=== PATIENT | female | born 1960 | race Caucasian/White ===

== ENCOUNTER 2020-10-07 12:30 | Inpatient (IN) | payer BC ==
[2020-10-07] MEDS ORDERED: ONDANSETRON 4 MG/2 ML VIAL IVP STA (14:15)
[2020-10-07] MEDS ORDERED: MORPHINE SULFATE 4 MG/ML SYRINGE IV STA (14:15)
[2020-10-07] MEDS ORDERED: SODIUM CHLORIDE 0.9% 1,000 ML IV STA (14:15)
--- NOTE | 2020-10-07 14:32 | ED ---
Abdominal Pain HPI - General Chief Complaint: Abdominal Pain Stated Complaint: ABD pain Time Seen by Provider: 10/07/20 13:58 Source: patient, EMS Limitations: no limitations - History of Present Illness Initial Comments: Patient is a 60-year-old female presenting to the emergency department via EMS with complaints of worsening abdominal pain and constipation and nausea. Bianca nt states she's been dealing with constipation at home over the past few weeks, she's been having very small bowel movements. She states over the past 4-5 days her pain has been increasing, she gets very sharp intense, 10/10 pain in her abdomen and then seems to go down a little bit. She states she has been trying "natural approaches to her constipation", she has not tried stool softeners or laxatives. She states she does drink a lot of water but has been nauseous over the past few days has not been able drink very much. Patient did receive 4 mg of Zofran and the EMS prior to arrival. Patient admits to prior history of laparoscopic abdominal surgery, no other surgeries. She denies any fevers or chills, no chest pain or shortness of breath. She states this pain is not a specific area, rather scattered around. She denies any hematuria or dysuria. She has no further complaints at this time. Upon arrival to the ER, she is hypertensive at 167/104, rest of vitals are normal. - Related Data Home Medications Medication Instructions Recorded Confirmed Biotin 5 mg PO DAILY 10/07/20 10/07/20 Cetirizine HCl [Zyrtec] 10 mg PO DAILY 10/07/20 10/07/20 Ibuprofen [Motrin Ib] 400 mg PO Q8H PRN 10/07/20 10/07/20 Allergies Allergy/AdvReac Type Severity Reaction Status Date / Time codeine AdvReac Vomiting Verified 10/07/20 14:51 hydrocodone [From Vicodin] AdvReac Vomiting Verified 10/07/20 14:51 Review of Systems ROS Statement: Those systems with pertinent positive or pertinent negative responses have been documented in the HPI. ROS Other: All systems not noted in ROS Statement are negative. Past Medical History Past Medical History: No Reported History History of Any Multi-Drug Resistant Organisms: None Reported Past Surgical History: No Surgical Hx Reported Past Psychological History: Anxiety Smoking Status: Current every day smoker Past Alcohol Use History: Occasional Past Drug Use History: Marijuana General Exam - General Exam Comments Initial Comments: GENERAL: Patient is well-developed and well-nourished. Patient is nontoxic and in moderate distress. HEAD: Atraumatic, normocephalic. EYES: Pupils equal round and reactive to light, extraocular movements intact, sclera anicteric, conjunctiva are normal. Eyelids were unremarkable. ENT: TMs normal, nares patent, oropharynx clear without exudates. Moist mucous membranes. NECK: Normal range of motion, supple without lymphadenopathy or JVD. LUNGS: Unlabored respirations. Breath sounds clear to auscultation bilaterally and equal. No wheezes rales or rhonchi. HEART: Regular rate and rhythm without murmurs, rubs or gallops. ABDOMEN: Soft, tender to palpation of the entire abdomen, no specific area, hypoactive bowel sounds, positive guarding. No masses appreciated. : Deferred MUSCULOSKELETAL: Normal extremities with adequate strength and normal range of motion, no pitting or edema. No clubbing or cyanosis. NEUROLOGICAL: Patient is alert and oriented x 3. Motor and sensory are also intact. Cranial nerves II through XII grossly intact. Symmetrical smile. Normal speech, normal gait. PSYCH: Normal mood, normal affect. SKIN: Warm, Dry, normal turgor, no rashes or lesions noted. Limitations: no limitations Course Vital Signs 10/07/20 10/07/20 12:54 16:15 Temperature 98.0 F 98.1 F Pulse Rate 83 86 Respiratory 18 18 Rate Blood Pressure 167/104 137/80 O2 Sat by Pulse 97 98 Oximetry Medical Decision Making - Medical Decision Making Patient is a 60-year-old female here for abdominal pain worsening over the past week. She arrived via EMS. She received 4 mg Zofran and EMS prior to arrival. She has been constipated, she has scattered severe abdominal pain, no specific area. She is hypertensive upon arrival, rest of vitals are normal. Labs show a white count of 19.9 with shift. lactic acid is 1.9, lipase is normal urine susy ws no evidence of infection. CT of the abdomen and pelvis shows a hypodense lesions adjacent to sigmoid colon felt to be related to a left ovarian abscess, acute diverticulitis with small adjacent abscesses should be considered within the differential. Patient will be admitted to the hospital, started on antibiotics with consult to surgery. I did order a pelvic ultrasound, this is pending. Patient was accepted by Dr. pandya. Case discussed with Dr. Blackwell. - Lab Data Result diagrams: 10/07/20 14:40 10/07/20 15:00 Lab Results 10/07/20 10/07/20 10/07/20 Range/Units 14:40 14:40 14:40 WBC 19.9 H (3.8-10.6) k/uL RBC 5.12 (3.80-5.40) m/uL Hgb 17.3 H (11.4-16.0) gm/dL Hct 49.8 H (34.0-46.0) % MCV 97.2 (80.0-100.0) fL MCH 33.8 (25.0-35.0) pg MCHC 34.8 (31.0-37.0) g/dL RDW 12.7 (11.5-15.5) % Plt Count 269 (150-450) k/uL MPV 9.2 Neutrophils % 92 % Lymphocytes % 2 % Monocytes % 4 % Eosinophils % 1 % Basophils % 1 % Neutrophils # 18.4 H (1.3-7.7) k/uL Lymphocytes # 0.4 L (1.0-4.8) k/uL Monocytes # 0.7 (0-1.0) k/uL Eosinophils # 0.3 (0-0.7) k/uL Basophils # 0.2 (0-0.2) k/uL PT 10.0 (9.0-12.0) sec INR 0.9 (<1.2) APTT 28.8 (22.0-30.0) sec Sodium (137-145) mmol/L Potassium (3.5-5.1) mmol/L Chloride (98-107) mmol/L Carbon Dioxide (22-30) mmol/L Anion Gap mmol/L BUN (7-17) mg/dL Creatinine (0.52-1.04) mg/dL Est GFR (CKD-EPI)AfAm (>60 ml/min/1.73 sqM) Est GFR (CKD-EPI)NonAf (>60 ml/min/1.73 sqM) Glucose (74-99) mg/dL Plasma Lactic Acid Rudy (0.7-2.0) mmol/L Calcium (8.4-10.2) mg/dL Total Bilirubin (0.2-1.3) mg/dL AST (14-36) U/L ALT (4-34) U/L Alkaline Phosphatase (38-126) U/L Total Protein (6.3-8.2) g/dL Albumin (3.5-5.0) g/dL Amylase (30-110) U/L Lipase (23-300) U/L Urine Color Yellow Urine Appearance Clear (Clear) Urine pH 5.5 (5.0-8.0) Ur Specific [place] >1.050 H (1.001-1.035) Urine Protein Negative (Negative) Urine Glucose (UA) Negative (Negative) Urine Ketones 1+ H (Negative) Urine Blood Negative (Negative) Urine Nitrite Negative (Negative) Urine Bilirubin Negative (Negative) Urine Urobilinogen <2.0 (<2.0) mg/dL Ur Leukocyte Esterase Negative (Negative) 10/07/20 10/07/20 Range/Units 14:40 15:00 WBC (3.8-10.6) k/uL RBC (3.80-5.40) m/uL Hgb (11.4-16.0) gm/dL Hct (34.0-46.0) % MCV (80.0-100.0) fL MCH (25.0-35.0) pg MCHC (31.0-37.0) g/dL RDW (11.5-15.5) % Plt Count (150-450) k/uL MPV Neutrophils % % Lymphocytes % % Monocytes % % Eosinophils % % Basophils % % Neutrophils # (1.3-7.7) k/uL Lymphocytes # (1.0-4.8) k/uL Monocytes # (0-1.0) k/uL Eosinophils # (0-0.7) k/uL Basophils # (0-0.2) k/uL PT (9.0-12.0) sec INR (<1.2) APTT (22.0-30.0) sec Sodium 134 L (137-145) mmol/L Potassium 5.9 H (3.5-5.1) mmol/L Chloride 99 (98-107) mmol/L Carbon Dioxide 27 (22-30) mmol/L Anion Gap 8 mmol/L BUN 10 (7-17) mg/dL Creatinine 0.56 (0.52-1.04) mg/dL Est GFR (CKD-EPI)AfAm >90 (>60 ml/min/1.73 sqM) Est GFR (CKD-EPI)NonAf >90 (>60 ml/min/1.73 sqM) Glucose 128 H (74-99) mg/dL Plasma Lactic Acid Rudy 1.9 (0.7-2.0) mmol/L Calcium 9.3 (8.4-10.2) mg/dL Total Bilirubin 1.3 (0.2-1.3) mg/dL AST 26 (14-36) U/L ALT 8 (4-34) U/L Alkaline Phosphatase 89 (38-126) U/L Total Protein 7.5 (6.3-8.2) g/dL Albumin 4.3 (3.5-5.0) g/dL Amylase 52 (30-110) U/L Lipase 12 L (23-300) U/L Urine Color Urine Appearance (Clear) Urine pH (5.0-8.0) Ur Specific [place] (1.001-1.035) Urine Protein (Negative) Urine Glucose (UA) (Negative) Urine Ketones (Negative) Urine Blood (Negative) Urine Nitrite (Negative) Urine Bilirubin (Negative) Urine Urobilinogen (<2.0) mg/dL Ur Leukocyte Esterase (Negative) Disposition Clinical Impression: Diverticulitis of intestine with abscess, Leukocytosis, Nausea and vomiting Disposition: ADMITTED IP TO THIS [facility] Condition: Stable Decision Date: 10/07/20 Decision Time: 16:02
--- NOTE | 2020-10-07 14:40 | XR ---
EXAMINATION TYPE: XR abdomen acute w cxr DATE OF EXAM: 10/07/2020 COMPARISON: NONE HISTORY: Abdominal pain TECHNIQUE: Supine, upright, and left side down lateral decubitus views of the abdomen are obtained. FINDINGS: Postsurgical change overlying the cervical spine. Arthropathy of the shoulders. No pneumoth orax. Heart size is normal no overt failure or pleural effusion. Atherosclerotic change aorta. Bowel gas pattern nonspecific with no obstruction. Degenerative change lower lumbar spine. No suspici ous calcifications abdomen. Punctate calcification left hemipelvis nonspecific and too small to lucas cterize. IMPRESSION: 1. Nonspecific abdomen with no evidence of obstruction. 2. No acute intrathoracic process.
[2020-10-07 14:52] LABS: Basophils # (A) 0.2 k/uL (0-0.2); Basophils % (A) 1 %; Eosinophils # (A) 0.3 k/uL (0-0.7); Eosinophils % (A) 1 %; HCT 49.8 % (34.0-46.0); HGB 17.3 gm/dL (11.4-16.0); Lymphocytes # (A) 0.4 k/uL (1.0-4.8); Lymphocytes % (A) 2 %; MCH 33.8 pg (25.0-35.0); MCHC 34.8 g/dL (31.0-37.0); MCV 97.2 fL (80.0-100.0); Mean Platelet Volume 9.2; Monocytes # (A) 0.7 k/uL (0-1.0); Monocytes % (A) 4 %; Neutrophils # (A) 18.4 k/uL (1.3-7.7); Neutrophils % (A) 92 %; Platelet Count 269 k/uL (150-450); RBC 5.12 m/uL (3.80-5.40); RDW 12.7 % (11.5-15.5); WBC 19.9 k/uL (3.8-10.6)
[2020-10-07 15:31] LABS: INR 0.9 (<1.2); Partial Thromboplastin Time 28.8 sec (22.0-30.0)
--- NOTE | 2020-10-07 15:38 | CT ---
EXAMINATION TYPE: CT abdomen pelvis w con DATE OF EXAM: 10/07/2020 COMPARISON: None INDICATION: generalized abdominal pain, nausea, vomiting, constipation DLP: 790.3 mGycm, Automated exposure control for dose reduction was used. CONTRAST: 100 mL of Isovue 300. Study performed without Oral Contrast TECHNIQUE: Axial images were obtained from above the diaphragm to the pubic rami in the axial plane a t 5 mm thick sections. Reconstructed images are reviewed on the computer in the coronal plane. FINDINGS: Limited CT sections are obtained the lung bases. The lung bases are clear. There is a small hiatal hernia present. CT ABDOMEN: Liver: Normal Spleen: Normal Pancreas: Normal Adrenal glands: The adrenal glands are normal. Gallbladder: Normal Kidneys: No masses are evident. No hydronephrosis is present. No cysts are present. Delayed images were obtained through the kidneys, which remain unremarkable. Aorta: Vascular calcification is within the aorta. Inferior vena cava: Normal. CT PELVIS: Diverticuli are present to the sigmoid colon. Adjacent to the superior posterior sigmoid colon is a h ypodense collection measuring 2.6 cm. Abscess should be considered. There are are additional complex hypodense areas 1.9 cm transverse which is separate from the colon could be an additional adjacent ab scess. Significant inflammatory changes not identified. In the coronal reconstructed images this appe ars to communicate with the broad ligament suggesting tubo-ovarian abscess may be more likely than di verticulitis. The study is without oral contrast causing limitation on the bowel evaluation. Appendix: Not visualized. No dilated tubular structures are inflammatory changes evident. Urinary bladder: Normal. Genitourinary structures: Uterus appears normal. Ovaries are not clearly identified. The hypodense st ructures adjacent to the sigmoid colon and superior to the uterine fundus potentially could be tubo-o varian abscess. This appears to communicate with the broad ligament on the coronal reconstructed imag es. Osseous structures: No suspicious lytic or sclerotic lesions. IMPRESSIONS: 1. Hypodense lesions adjacent sigmoid colon felt to be related to left tubo-ovarian abscess. Acute d iverticulitis with small adjacent abscesses should be considered within the differential.
[2020-10-07 15:55] LABS: African American GFR (CKD) >90 (>60 ml/min/1.73 sqM); Albumin 4.3 g/dL (3.5-5.0); Amylase 52 U/L (30-110); Anion Gap 8 mmol/L; Blood Urea Nitrogen 10 mg/dL (7-17); Calcium 9.3 mg/dL (8.4-10.2); Carbon Dioxide 27 mmol/L (22-30); Chloride 99 mmol/L (98-107); Glucose 128 mg/dL (74-99); Non-African American GFR(CKD) >90 (>60 ml/min/1.73 sqM); Sodium 134 mmol/L (137-145); Total Bilirubin 1.3 mg/dL (0.2-1.3); Total Protein 7.5 g/dL (6.3-8.2)
[2020-10-07] MEDS ORDERED: MORPHINE SULFATE 4 MG/ML SYRINGE IVP STA (15:59)
[2020-10-07] MEDS ORDERED: NALOXONE 0.4 MG/ML 1 ML VIAL IV PRN (15:59)
[2020-10-07] MEDS ORDERED: cefTRIAXone IN SWFI 1,000 MG/10 ML SYRINGE IVP STA (16:01)
[2020-10-07] MEDS ORDERED: metroNIDAZOLE-NS PMX 500 MG in SALINE 1 100ML.BAG IVPB STA (16:01)
[2020-10-07 16:20] LABS: ALT 8 U/L (4-34); AST 26 U/L (14-36); Alkaline Phosphatase 89 U/L (38-126); Lipase 12 U/L (23-300); Potassium 5.9 mmol/L (3.5-5.1)
[2020-10-07 16:43] LABS: Appearance,Urine Clear (Clear); Bilirubin,Urine Negative (Negative); Blood,Urine Negative (Negative); Color,Urine Yellow; Glucose,Urine (UA) Negative (Negative); Ketones,Urine 1+ (Negative); Leukocyte Esterase,Urine Negative (Negative); Nitrite,Urine Negative (Negative); PH, Urine 5.5 (5.0-8.0); Protein,Urine Negative (Negative); Urobilinogen,Urine <2.0 mg/dL (<2.0)
[2020-10-07 16:47] LABS: Specific Gravity,Urine >1.050 (1.001-1.035)
[2020-10-07] MEDS: SODIUM CHLORIDE 0.9% 1,000 ML IV SCH (16:53)
[2020-10-07] MEDS: KETOROLAC 15 MG/ML 1 ML VIAL IVP PRN (17:36)
--- NOTE | 2020-10-07 18:45 | US ---
EXAMINATION TYPE: US pelvis complete transvag DATE OF EXAM: 10/07/2020 COMPARISON: NONE CLINICAL HISTORY: pain, possible abscess noted on CT. TECHNIQUE: . Transabdominal sonographic images of the pelvis were acquired. Transvaginal sonographi c images were medically necessary to better assess the following anatomy: Adnexal location EXAM MEASUREMENTS: Uterus: 5.1 x 2.1 x 3.0 cm Endometrial Stripe: 0.2 cm Right Ovary: not clearly identified Left Ovary: not clearly identified Grayscale and color Doppler imaging performed 1. Uterus: Anteverted wnl 2. Endometrium: wnl 3. Right Ovary: not clearly identified 4. Left Ovary: not clearly identified 5. Bilateral Adnexa: wnl 6. Posterior cul-de-sac: there is a complex abnormality adjacent to the uterus in measuring 5.8 x 2. 4 x 3.7cm IMPRESSION: Findings consistent with abscess seen on CT, limited exam
[2020-10-07] MEDS: NICOTINE 21MG/24HR PATCH TRANSDERM SCH (18:48)
--- NOTE | 2020-10-07 21:25 | P.HPIM ---
History of Present Illness She follows with no primary care doctor She presents because of abdominal and back pain. Her main pain is in the back and radiating to the left side anteriorly, has been going on for 2 weeks and is getting severe progressively. It was 10/10 when she came in and currently improved with pain medication down to 7/10, it felt like colic that comes and goes, also she vomited a few times. Patient reports no bowel movement for 2 wee ks only little stool comes now with pain in the last time she had a stool was about yesterday. She denies fever. No chest pain or dyspnea or weakness or numbness or blurred vision. No headache. No slurred speech. No urinary tract symptoms like no dysuria or increased frequency. She smokes about 1 pack per day and she consulted and agrees to quit, she agrees to the nicotine patch. She drinks alcohol occasionally and no illicit drugs Vitas looks stable. Labs showed leukocytosis of 19.9 K. Rest of CBC, BMP is unremarkable. Potassium is 5.9, however it is hemolyzed specimen. Glucose 128. Rest of BMP are unremarkable. Urine analysis is unremarkable Ortiz virus not detected. Transvaginal ultrasound showing complex abnormality in the posterior cul-de-sac adjacent to the uterus measuring 5.8 x 2[address] of the abdomen and pelvis: Hypodense lesions adjacent sigmoid colon felt to be related to left tubule ovarian abscess. Acute diverticulitis with a small adjacent abscess should be considered within the differential complex abnormality in the posterior cul-de-sac adjacent to the uterus measuring 5.8 x 2.4 x 3.7 cm In the emergency room patient received normal saline at 75 mL/h after 1 L of normal saline. Given 1 dose of ceftriaxone and metronidazole. Review of Systems Review of systems CONSTITUTIONAL: No fever, no malaise, no fatigue. HEENT: No recent visual problems or hearing problems. Denied any sore throat. CARDIOVASCULAR: No orthopnea, PND, no palpitations, no syncope. PULMONARY: No shortness of breath, no cough, no hemoptysis. GASTROINTESTINAL: No diarrhea, no nausea, no vomiting, . Normoactive bowel sounds. NEUROLOGICAL: No headaches, no weakness, no numbness. HEMATOLOGICAL: Denies any bleeding or petechiae. GENITOURINARY: Denies any burning micturition, frequency, or urgency. MUSCULOSKELETAL/RHEUMATOLOGICAL: Denies any joint pain, swelling, or any muscle pain. ENDOCRINE: Denies any polyuria or polydipsia. Past Medical History Past Medical History: No Reported History History of Any Multi-Drug Resistant Organisms: None Reported Past Surgical History: No Surgical Hx Reported Past Psychological History: Anxiety Smoking Status: Current every day smoker Past Alcohol Use History: Occasional Past Drug Use History: Marijuana Medications and Allergies Home Medications Medication Instructions Recorded Confirmed Type Biotin 5 mg PO DAILY 10/07/20 10/07/20 History Cetirizine HCl [Zyrtec] 10 mg PO DAILY 10/07/20 10/07/20 History Ibuprofen [Motrin Ib] 400 mg PO Q8H PRN 10/07/20 10/07/20 History Allergies Allergy/AdvReac Type Severity Reaction Status Date / Time codeine AdvReac Vomiting Verified 10/07/20 14:51 hydrocodone [From Vicodin] AdvReac Vomiting Verified 10/07/20 14:51 Physical Exam Vitals: Vital Signs Temp Pulse Resp BP Pulse Ox 10/07/20 16:15 98.1 F 86 18 137/80 98 10/07/20 12:54 98.0 F 83 18 167/104 97 Intake and Output 10/07/20 10/07/20 10/07/20 06:59 14:59 22:59 Other: Weight 67.132 kg GENERAL: The patient is alert and oriented x3, not in any acute distress. Well developed, well nourished. HEENT: Pupils are round and equally reacting to light. EOMI. No scleral icterus. No conjunctival pallor. Normocephalic, atraumatic. No pharyngeal erythema. No thyromegaly. CARDIOVASCULAR: S1 and S2 present. No murmurs, rubs, or gallops. PULMONARY: Chest is clear to auscultation, no wheezing or crackles. -ABDOMEN: Soft, lower abdominal tenderness, no rebound tenderness or guarding, nondistended, normoactive bowel sounds. No palpable organomegaly. MUSCULOSKELETAL: No joint swelling or deformity. EXTREMITIES: No cyanosis, clubbing, or pedal edema. NEUROLOGICAL: Gross neurological examination did not reveal any focal deficits. SKIN: No rashes. no petechiae. Results CBC & Chem 7: 10/07/20 14:40 10/07/20 15:00 Labs: Abnormal Lab Results - Last 24 Hours (Table) 10/07/20 10/07/20 10/07/20 Range/Units 14:40 14:40 15:00 WBC 19.9 H (3.8-10.6) k/uL Hgb 17.3 H (11.4-16.0) gm/dL Hct 49.8 H (34.0-46.0) % Neutrophils # 18.4 H (1.3-7.7) k/uL Lymphocytes # 0.4 L (1.0-4.8) k/uL Sodium 134 L (137-145) mmol/L Potassium 5.9 H (3.5-5.1) mmol/L Glucose 128 H (74-99) mg/dL Lipase 12 L (23-300) U/L Ur Specific [place] >1.050 H (1.001-1.035) Urine Ketones 1+ H (Negative) Assessment and Plan Assessment: This is a pleasant 60 years old female who presents with abdominal pain for 2 weeks. Suspected acute diverticulitis with abscess, tubo-ovarian abscess felt more likely by radiologist. Continue with antibiotics, we will start the patient on Zosyn and IV fluid Inside [facility]ste[facility] and surgical consult Labs and medication were reviewed.. Continue same treatment. Continue with symptomatic treatment. Resume home medication. Monitor lytes and vitals. DVT and GI prophylaxis. Further recommendationsas per clinical course of the patient DVT prophylaxis: Subcutaneous heparin GI Prophylaxis: Pepcid Prognosis is guarded
[2020-10-07] MEDS: MORPHINE SULFATE 4 MG/ML SYRINGE IV PRN (21:44)
[2020-10-08] MEDS: FAMOTIDINE 20 MG/2 ML VIAL IV SCH ×3 (00:02→21:12)
[2020-10-08] MEDS: HEPARIN SODIUM,PORCINE/PF 5,000 UNIT/0.5 ML SYRINGE SQ SCH ×3 (00:02→21:13)
[2020-10-08] MEDS: MORPHINE SULFATE 4 MG/ML SYRINGE IV PRN ×3 (04:32→17:30)
[2020-10-08] MEDS: SODIUM CHLORIDE 0.9% 1,000 ML IV SCH ×2 (07:19→21:11)
[2020-10-08 08:19] LABS: Basophils # (A) 0.1 k/uL (0-0.2); Basophils % (A) 1 %; Eosinophils # (A) 0.1 k/uL (0-0.7); Eosinophils % (A) 1 %; HCT 48.4 % (34.0-46.0); HGB 15.9 gm/dL (11.4-16.0); Lymphocytes # (A) 0.5 k/uL (1.0-4.8); Lymphocytes % (A) 7 %; MCH 33.4 pg (25.0-35.0); MCHC 32.8 g/dL (31.0-37.0); MCV 101.9 fL (80.0-100.0); Macrocytosis Slight; Mean Platelet Volume 9.7; Monocytes # (A) 0.2 k/uL (0-1.0); Monocytes % (A) 3 %; Neutrophils % (A) 88 %; Platelet Count 183 k/uL (150-450); RBC 4.75 m/uL (3.80-5.40); RDW 13.4 % (11.5-15.5); WBC 7.9 k/uL (3.8-10.6)
[2020-10-08] MEDS: NICOTINE 21MG/24HR PATCH TRANSDERM SCH (08:40)
--- NOTE | 2020-10-08 11:34 | P.CON ---
Consult Note - . Consult date: 10/08/20 Assessment/Plan:: This is a 60-year-old female 1 para 0010 last menstrual period approximately 10 years ago. Patient presented to the emergency room yesterday, with a complaint of increasing abdominal pain and distention. Her last bowel movement was approximately 2 weeks ago, she is not passing gas. She denies vaginal discharge, vaginal bleeding, or any irritation or odor. She states that over the past several months her bowel movements have become very very tiny and narrow. Her appetite is decreased. She has had a 40 pound weight loss over the past year. She has never had a colonoscopy. Past medical history is essentially negative. Current medications at home none. ALLERGIES to codeine and Vicodin to which reports nausea and vomiting. Social history is significant for one pack per day tobacco since age 14, marijuana nightly for sleep aid. Patient has been for 34 years, is monogamous. She has not been sexually active with her in the past several years secondary to his health issues. She denies alcohol or other drug use. Family history father at age 61 of lung cancer. Mother is alive at age 85 in reasonably good health. She is a 58-year-old sister who is healthy, and 3 brothers all of whom are healthy with the exception of sleep apnea. Past gynecologic history patient's last pelvic exam was apparently 10 years ago. Again she denies vaginal odor, bleeding, discharge. She is not currently sexually active. Past surgical history is significant for exploratory laparotomy approximately 25 years ago with removal of the left fallopian tube secondary to abscess formation. She also has had a cervical fusion approximately 10 years ago. On examination patient is 5 foot 3 inches, 48 pounds, Which are 98.1, pulse 86, respirations 16, blood pressure 97/80. Dentition is poor, no thyromegaly. No cervical lymphadenopathy. Chest is clear to auscultation in all soto anteriorly and posteriorly. Cardiac exam reveals regular rate and rhythm with no murmur click or rub. Abdomen is softly distended, no rebound with minimal guarding in bilateral lower quadrants. There are hypoactive bowel sounds. No CVA tenderness. On pelvic exam external genitalia appear age appropriate, no discharge or odor noted. Cervix is small and nulliparous. Uterus is small anteverted anteflexed. Patient is tender in bilateral lower quadrants, no obvious pelvic mass is noted. Rectal exam reveals good sphincter tone, stool sample is sent to the lab for fit testing. No obvious rectal lesions on exam. Labs on admission included a white count of 19.9, repeat this morning 7.9. Hemoglobin 15.9, hematocrit 48.4, platelets 296,000. Imaging includes a computed tomography scan which reveals a 5.8 x 2.4 x 3.7 cm complex area adjacent to the uterus. In discussing this with Dr. Vivas it appears to be within the wall of the bowel, likely consistent with acute diverticulitis. Pelvic ultrasound confirms a 5.1 x 2.1 x 3.0 cm uterus, normal endometrial thickness of 2 mm. The complex area is again noted in the left hemipelvis. Impression: 60-year-old woman with abdominal distention and pain, change in bowel movements, and imaging findings consistent with a complex lesion in the left hemipelvis. I do not believe the patient's history is supportive of a tubo-ovarian abscess. My thought would be diverticular abscess. Dr. Vivas of the radiology department, occurs. Plan: Agree with Radha Alvarez Zosyn. I've discussed the case with admitting physician Dr. Bui, as well as consulting physician Dr. Andres. We will consider possible needle drainage of this region pending Dr. Vivas's op inion. Dr. andres to consider surgical exploration, I can insert to be on standby if surgically this is felt to be a BALLISTICIAN issue. I've discussed this in detail with the patient. Thank you for the consultation. Time spent with patient 60 minutes.
--- NOTE | 2020-10-08 13:03 | P.PN ---
Subjective She follows with no primary care doctor She presents because of abdominal and back pain. Her main pain is in the back and radiating to the left side anteriorly, has been going on for 2 weeks and is getting severe progressively. It was 10/10 when she came in and currently improved with pain medication down to 7/10, it felt like colic that comes and goes, also she vomited a few times. Patient reports no bowel movement for 2 weeks only little stool comes now with pain in the last time she had a stool was about yesterday. She denies fever. No chest pain or dyspnea or weakness or numbness or blurred vision. No headache. No slurred speech. No urinary tract symptoms like no dysuria or increased frequency. She smokes about 1 pack per day and she consulted and agrees to quit, she agrees to the nicotine patch. She drinks alcohol occasionally and no illicit drugs Vitas looks stable. Labs showed leukocytosis of 19.9 K. Rest of CBC, BMP is unremarkable. Potassium is 5.9, however it is hemolyzed specimen. Glucose 128. Rest of BMP are unremarkable. Urine analysis is unremarkable Ortiz virus not detected. Transvaginal ultrasound showing complex abnormality in the posterior cul-de-sac adjacent to the uterus measuring 5.8 x 2.[address] of the abdomen and pelvis: Hypodense lesions adjacent sigmoid colon felt to be related to left tubule ovarian abscess. Acute diverticulitis with a small adjacent abscess should be considered within the differential complex abnormality in the posterior cul-de-sac adjacent to the uterus measuring 5.8 x 2.4 x 3.7 cm In the emergency room patient received normal saline at 75 mL/h after 1 L of normal saline. Given 1 dose of ceftriaxone and metronidazole. 10/08/2020 Patient abdominal pain and back pain is better today and retracted as 8/10 but mild, sometimes is Severe cramps at 10/10. She has nausea and little vomiting last night. However she was nothing by mouth this morning. She has normal bowel movement or passing gas. Also patient states that she has no PCP however her insurance assigned her in [place] that she intends to follow-up with. Pelvic ultrasound showing complex abnormality adjacent to the uterus measuring 5.8 x 2.4 x 3.7 cm the posterior cul-de-sac I discussed the case with Dr. Almaguer and her input is appreciated, this abscess is less likely to be related to reproductive organs however we will keep close monitoring. Surgery team on the case and therefore follow the recommendation was they see the patient Review of systems CONSTITUTIONAL: No fever, no malaise, no fatigue. HEENT: No recent visual problems or hearing problems. Denied any sore throat. CARDIOVASCULAR: No orthopnea, PND, no palpitations, no syncope. PULMONARY: No shortness of breath, no cough, no hemoptysis. GASTROINTESTINAL: No diarrhea, no nausea, no vomiting, . Normoactive bowel ernesto nds. NEUROLOGICAL: No headaches, no weakness, no numbness. Active Medications Generic Name Dose Route Start Last Admin Trade Name Freq PRN Reason Stop Dose Admin Famotidine 20 mg 10/07/20 21:45 10/08/20 08:40 Famotidine 20 Mg/2 Ml Vial IV 20 mg Q12HR PREM Administration Heparin Sodium (Porcine) 5,000 unit 10/07/20 21:45 10/08/20 08:45 Heparin Sodium,Porcine/Pf 5,000 Unit/0.5 Ml Syringe SQ 5,000 unit Q12HR PREM Administration Sodium Chloride 1,000 mls @ 75 mls/hr 10/07/20 16:00 10/08/20 07:19 Saline 0.9% IV 75 mls/hr .[id number] PREM Administration Piperacillin Sod/Tazobactam 100 mls @ 25 mls/hr 10/08/20 21:30 Sod 3.375 gm/ Sodium Chloride IVPB Q8HR PREM Ketorolac Tromethamine 15 mg 10/07/20 15:59 10/07/20 17:36 Ketorolac 15 Mg/Ml 1 Ml Vial IVP 10/10/20 16:00 15 mg Q6HR PRN Administration Moderate Pain Morphine Sulfate 4 mg 10/07/20 15:59 10/08/20 08:44 Morphine Sulfate 4 Mg/Ml Syringe IV 4 mg Q4HR PRN Administration Severe Pain Naloxone HCl 0.2 mg 10/07/20 15:59 Naloxone 0.4 Mg/Ml 1 Ml Vial IV Q2M PRN Opioid Reversal Nicotine 1 patch 10/07/20 18:00 10/08/20 08:40 Nicotine 21mg/24hr Patch TRANSDERM 1 patch DAILY PREM Administration Ondansetron HCl 4 mg 10/07/20 15:59 Ondansetron 4 Mg/2 Ml Vial IVP Q8HR PRN Nausea And Vomiting Objective - Vital Signs Vital signs: Vital Signs Temp 98 F 10/08/20 07:17 Pulse 86 10/08/20 10:42 Resp 16 10/08/20 10:42 BP 97/69 10/08/20 10:42 Pulse Ox 100 10/08/20 10:42 Intake & Output 10/07/20 10/08/20 10/08/20 18:59 06:59 18:59 Weight 67.132 kg - Exam GENERAL: The patient is alert and oriented x3, not in any acute distress. Well developed, well nourished. HEENT: Pupils are round and equally reacting to light. EOMI. No scleral icterus. No conjunctival pallor. Normocephalic, atraumatic. No pharyngeal erythema. No thyromegaly. CARDIOVASCULAR: S1 and S2 present. No murmurs, rubs, or gallops. PULMONARY: Chest is clear to auscultation, no wheezing or crackles. ABDOMEN: Soft, nontender, nondistended, normoactive bowel sounds. No palpable organomegaly. MUSCULOSKELETAL: No joint swelling or deformity. EXTREMITIES: No cyanosis, clubbing, or pedal edema. NEUROLOGICAL: Gross neurological examination did not reveal any focal deficits. SKIN: No rashes. no petechiae. - Labs CBC & Chem 7: 10/08/20 06:57 10/07/20 15:00 Labs: Abnormal Lab Results - Last 24 Hours (Table) 10/07/20 10/07/20 10/07/20 Range/Units 14:40 14:40 15:00 WBC 19.9 H (3.8-10.6) k/uL Hgb 17.3 H (11.4-16.0) gm/dL Hct 49.8 H (34.0-46.0) % MCV (80.0-100.0) fL Neutrophils # 18.4 H (1.3-7.7) k/uL Lymphocytes # 0.4 L (1.0-4.8) k/uL Sodium 134 L (137-145) mmol/L Potassium 5.9 H (3.5-5.1) mmol/L Glucose 128 H (74-99) mg/dL Lipase 12 L (23-300) U/L Procalcitonin (0.02-0.09) ng/mL Ur Specific [place] >1.050 H (1.001-1.035) Urine Ketones 1+ H (Negative) 10/08/20 10/08/20 Range/Units 06:57 06:57 WBC (3.8-10.6) k/uL Hgb (11.4-16.0) gm/dL Hct 48.4 H (34.0-46.0) % MCV 101.9 H (80.0-100.0) fL Neutrophils # (1.3-7.7) k/uL Lymphocytes # 0.5 L (1.0-4.8) k/uL Sodium (137-145) mmol/L Potassium (3.5-5.1) mmol/L Glucose (74-99) mg/dL Lipase (23-300) U/L Procalcitonin 0.23 H (0.02-0.09) ng/mL Ur Specific [place] (1.001-1.035) Urine Ketones (Negative) Assessment and Plan Assessment: posterior cul-de-sac abscess, adjacent to the uterus measuring 5.8 x 2.4 x 3.7 cm. Most likely related to acute diverticulitis. Less likely tubo-ovarian abscess Nicotine dependence Plan: This is a pleasant 60 years old female who presents with abdominal pain for 2 weeks. Suspected acute diverticulitis with abscess, tubo-ovarian abscess felt more likely by radiologist. 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 Continue same treatment. Continue with symptomatic treatment. Resume home medication. Monitor lytes and vitals. DVT and GI prophylaxis. Further recommendationsas per clinical course of the patient DVT prophylaxis: Subcutaneous heparin GI Prophylaxis: Pepcid Prognosis is guarded
[2020-10-08] MEDS: KETOROLAC 15 MG/ML 1 ML VIAL IVP PRN (13:52)
[2020-10-08] MEDS ORDERED: ACETAMINOPHEN TAB 500 MG TAB PO STA (13:59)
[2020-10-08] MEDS: PIPERACILLIN-TAZOBACTAM 3.375 GM in SODIUM CHLORIDE 0.9% 100 ML IVPB SCH (21:15)
[2020-10-09] MEDS: MORPHINE SULFATE 4 MG/ML SYRINGE IV PRN ×5 (00:23→23:31)
--- NOTE | 2020-10-09 04:17 | P.GSCN ---
History of Present Illness Consult date: 10/08/20 History of present illness: Patient is a 60 year old female who has a 2 week history of increasing abdominal pain and some constipation. She has never had a colonoscopy, she has never had pain like this before in the past. She states her pain was worse last night and has somewhat improved today, There was a complex fluid collection in the left pelvis seen on CT. Past Medical History Past Medical History: Asthma, Eye Disorder, GERD/Reflux, Hyperlipidemia, Osteoarthritis (OA), Pneumonia Additional Past Medical History / Comment(s): Pt states she has been on statins in the past but now tries to manage with her diet, bilateral dry eyes, bronchitis, pneumonias, murmur, vertigo especially if sleeps on r side and with certain neck positions, pain bilateral knees/fingers which pt believes to be arthritis, occasional fluttering sensation in chest, UTIs, "hot flashes". History of Any Multi-Drug Resistant Organisms: None Reported Past Surgical History: Orthopedic Surgery Additional Past Surgical History / Comment(s): Exploratory with L salpingectomy and R fallopian tube "cleaned out", cervical fusion Past Anesthesia/Blood Transfusion Reactions: Postoperative Nausea & Vomiting (PONV) Smoking Status: Current every day smoker - Past Family History Father Family Medical History: Cancer Additional Family Medical History / Comment(s): Father of lung cancer. He was a smoker. Mother Family Medical History: Diabetes Mellitus, Hyperlipidemia Medications and Allergies Home Medications Medication Instructions Recorded Confirmed Type Cetirizine HCl [Zyrtec] 10 mg PO DAILY 10/07/20 10/07/20 History Ibuprofen [Motrin Ib] 400 mg PO Q8H PRN 10/07/20 10/07/20 History RX: Biotin 5 mg PO DAILY 10/07/20 10/07/20 History Allergies Allergy/AdvReac Type Severity Reaction Status Date / Time codeine AdvReac Vomiting Verified 10/07/20 14:51 hydrocodone [From Vicodin] AdvReac Vomiting Verified 10/07/20 14:51 Surgical - Exam Osteopathic Statement: *. No significant issues noted on an osteopathic structural exam other than those noted in the History and Physical/Consult. Vital Signs Temp Pulse Resp BP Pulse Ox 98.0 F 83 18 167/104 97 10/07/20 12:54 10/07/20 12:54 10/07/20 12:54 10/07/20 12:54 10/07/20 12:54 - General well developed, well nourished, no distress - Respiratory normal expansion, normal respiratory effort - Abdomen Abdomen: soft, non tender - Neurologic normal coordination, normal sensation - Psychiatric oriented to time, oriented to person, oriented to place Results - Labs 10/08/20 06:57 10/07/20 15:00 Abnormal Lab Results - Last 24 Hours (Table) 10/08/20 10/08/20 Range/Units 06:57 06:57 Hct 48.4 H (34.0-46.0) % MCV 101.9 H (80.0-100.0) fL Lymphocytes # 0.5 L (1.0-4.8) k/uL Procalcitonin 0.23 H (0.02-0.09) ng/mL Microbiology - Last 24 Hours (Table) 10/07/20 16:15 Blood Culture - Preliminary Blood No Growth after 24 hours 10/07/20 16:39 Blood Culture - Preliminary Blood No Growth after 24 hours Assessment and Plan Assessment: Abscess/complex fluid collection in pelvis Plan: Patient is not peritoneal at this time and WBC responded to antibiotics, on CT it was unclear if patient had diverticular disease however she should continue NPO and antibiotics at this time. If she does not continue to improve I would recommend IR guided drain. Patient will need colonosocopy as an outpatient to rule out neoplastic process in the colon.
[2020-10-09 04:34] LABS: ALT <8 U/L (8-44); AST 18 U/L (13-35); African American GFR (CKD) 91.6 (60.0-200.0); Albumin/Globulin Ratio 1.56 (1.60-3.17); Alkaline Phosphatase 115 U/L (41-126); BUN/Creat Ratio 13.75 Ratio (12.00-20.00); C Reactive Protein 14.9 mg/dL (0.0-0.8); Calcium 8.5 mg/dL (8.7-10.3); Carbon Dioxide 16.4 mmol/L (21.6-31.8); Chloride 107 mmol/L (96-109); Globulin 2.5 g/dL (1.6-3.3); Glucose 124 mg/dL (70-110); Magnesium 1.7 mg/dL (1.5-2.4); Potassium 4.9 mmol/L (3.5-5.5); Sodium 142 mmol/L (135-145); Total Bilirubin 0.7 mg/dL (0.3-1.2); Total Protein 6.4 g/dL (6.2-8.2)
[2020-10-09 07:32] LABS: Basophils # (A) 0.1 k/uL (0-0.2); Basophils % (A) 1 %; Eosinophils # (A) 0.1 k/uL (0-0.7); Eosinophils % (A) 1 %; HCT 43.8 % (34.0-46.0); HGB 14.7 gm/dL (11.4-16.0); Lymphocytes # (A) 0.9 k/uL (1.0-4.8); Lymphocytes % (A) 6 %; MCH 33.6 pg (25.0-35.0); MCHC 33.7 g/dL (31.0-37.0); MCV 99.7 fL (80.0-100.0); Mean Platelet Volume 8.9; Monocytes # (A) 0.6 k/uL (0-1.0); Monocytes % (A) 4 %; Neutrophils # (A) 13.6 k/uL (1.3-7.7); Neutrophils % (A) 89 %; Platelet Count 138 k/uL (150-450); RBC 4.39 m/uL (3.80-5.40); RDW 12.9 % (11.5-15.5); WBC 15.3 k/uL (3.8-10.6)
[2020-10-09] MEDS: FAMOTIDINE 20 MG/2 ML VIAL IV SCH ×2 (07:36→21:47)
[2020-10-09] MEDS: NICOTINE 21MG/24HR PATCH TRANSDERM SCH (07:37)
[2020-10-09] MEDS: PIPERACILLIN-TAZOBACTAM 3.375 GM in SODIUM CHLORIDE 0.9% 100 ML IVPB SCH ×2 (07:37→16:15)
[2020-10-09] MEDS: HEPARIN SODIUM,PORCINE/PF 5,000 UNIT/0.5 ML SYRINGE SQ SCH ×2 (07:37→21:49)
[2020-10-09 07:54] LABS: African American GFR (CKD) >90 (>60 ml/min/1.73 sqM); Anion Gap 6 mmol/L; Blood Urea Nitrogen 18 mg/dL (7-17); Calcium 8.5 mg/dL (8.4-10.2); Carbon Dioxide 28 mmol/L (22-30); Chloride 107 mmol/L (98-107); Glucose 64 mg/dL (74-99); Non-African American GFR(CKD) 86 (>60 ml/min/1.73 sqM); Potassium 4.1 mmol/L (3.5-5.1); Sodium 141 mmol/L (137-145)
[2020-10-09] MEDS: KETOROLAC 15 MG/ML 1 ML VIAL IVP PRN ×2 (10:37→16:10)
[2020-10-09] MEDS: SODIUM CHLORIDE 0.9% 1,000 ML IV SCH (12:23)
[2020-10-09 13:00] LABS: Glucose,Whole Blood 67 mg/dL (75-99)
[2020-10-09 13:04] VITALS: BMI 26.2
--- NOTE | 2020-10-09 16:34 | P.PN ---
Subjective Progress Note Date: 10/09/20 Patient is left lower quadrant and pelvic abdominal pain. She states that the pain meds somewhat help however she thinks it is either gotten slightly worse or no better since her admission. She's not passing any she did have a bowel movement yesterday however she's not passing any gas today. She denies any nausea or vomiting. Objective - Vital Signs Vital signs: Vital Signs Temp 98.6 F 10/09/20 12:47 Pulse 84 10/09/20 12:47 Resp 17 10/09/20 12:47 BP 102/66 10/09/20 12:47 Pulse Ox 95 10/09/20 12:47 Intake & Output 10/08/20 10/09/20 10/09/20 18:59 06:59 18:59 Intake Total 200 Balance 200 Weight 67.132 kg 67.132 kg Intake: Oral 200 Other: Voiding Method Toilet # Voids 1 2 - Constitutional General appearance: Present: cooperative - Respiratory Details: Nonlabored - Cardiovascular Rhythm: regular - Gastrointestinal Gastrointestinal Comment(s): Soft nondistended tender to palpation the left lower quadrant and suprapubic No rebound rigidity or guarding - Psychiatric Psychiatric: Present: A&O x's 3 - Labs CBC & Chem 7: 10/09/20 06:42 10/09/20 06:42 Labs: Abnormal Lab Results - Last 24 Hours (Table) 10/08/20 10/09/20 10/09/20 Range/Units 06:57 06:42 06:42 WBC 15.3 H (3.8-10.6) k/uL Plt Count 138 L (150-450) k/uL Neutrophils # 13.6 H (1.3-7.7) k/uL Lymphocytes # 0.9 L (1.0-4.8) k/uL Carbon Dioxide 16.4 L (21.6-31.8) mmol/L Anion Gap 18.60 H (4.00-12.00) mmol/L BUN 18 H (7-17) mg/dL Glucose 124 H 64 L (70-110) mg/dL POC Glucose (mg/dL) (75-99) mg/dL Calcium 8.5 L (8.7-10.3) mg/dL ALT <8 L (8-44) U/L C-Reactive Protein 14.9 H (0.0-0.8) mg/dL Albumin/Globulin Ratio 1.56 L (1.60-3.17) g/dL 10/09/20 Range/Units 12:57 WBC (3.8-10.6) k/uL Plt Count (150-450) k/uL Neutrophils # (1.3-7.7) k/uL Lymphocytes # (1.0-4.8) k/uL Carbon Dioxide (21.6-31.8) mmol/L Anion Gap (4.00-12.00) mmol/L BUN (7-17) mg/dL Glucose (70-110) mg/dL POC Glucose (mg/dL) 67 L (75-99) mg/dL Calcium (8.7-10.3) mg/dL ALT (8-44) U/L C-Reactive Protein (0.0-0.8) mg/dL Albumin/Globulin Ratio (1.60-3.17) g/dL Microbiology - Last 24 Hours (Table) 10/07/20 16:15 Blood Culture - Preliminary Blood No Growth after 24 hours 10/07/20 16:39 Blood Culture - Preliminary Blood No Growth after 24 hours Assessment and Plan Assessment: Abscess/complex fluid collection in pelvis Plan: Patient's leukocytosis worsened overnight despite antibiotic therapy. She is still having abdominal pain in her pelvis and left lower quadrant. She's not peritoneal this time and does not require any invasive surgical intervention however patient may benefit from interventional radiology consult for possible drainage of the abscess. Follow-up IR recommendations. Continue IV antibiotics and nothing by mouth at this time
[2020-10-09] MEDS ORDERED: DEXTROSE 50% SYRINGE 50 ML IVP PRN (19:11)
--- NOTE | 2020-10-09 19:14 | P.PN ---
Subjective She follows with no primary care doctor She presents because of abdominal and back pain. Her main pain is in the back and radiating to the left side anteriorly, has been going on for 2 weeks and is getting severe progressively. It was 10/10 when she came in and currently improved with pain medication down to 7/10, it felt like colic that comes and goes, also she vomited a few times. Patient reports no bowel movement for 2 weeks only little stool comes now with pain in the last time she had a stool was about yesterday. She denies fever. No chest pain or dyspnea or weakness or numbness or blurred vision. No headache. No slurred speech. No urinary tract symptoms like no dysuria or increased frequency. She smokes about 1 pack per day and she consulted and agrees to quit, she agrees to the nicotine patch. She drinks alcohol occasionally and no illicit drugs Vitas looks stable. Labs showed leukocytosis of 19.9 K. Rest of CBC, BMP is unremarkable. Potassium is 5.9, however it is hemolyzed specimen. Glucose 128. Rest of BMP are unremarkable. Urine analysis is unremarkable Ortiz virus not detected. Transvaginal ultrasound showing complex abnormality in the posterior cul-de-sac adjacent to the uterus measuring 5.8 x 2.[address] of the abdomen and pelvis: Hypodense lesions adjacent sigmoid colon felt to be related to left tubule ovarian abscess. Acute diverticulitis with a small adjacent abscess should be considered within the differential complex abnormality in the posterior cul-de-sac adjacent to the uterus measuring 5.8 x 2.4 x 3.7 cm In the emergency room patient received normal saline at 75 mL/h after 1 L of normal saline. Given 1 dose of ceftriaxone and metronidazole. 10/08/2020 Patient abdominal pain and back pain is better today and retracted as 8/10 but mild, sometimes is Severe cramps at 10/10. She has nausea and little vomiting last night. However she was nothing by mouth this morning. She has normal bowel movement or passing gas. Also patient states that she has no PCP however her insurance assigned her in [place] that she intends to follow-up with. Pelvic ultrasound showing complex abnormality adjacent to the uterus measuring 5.8 x 2.4 x 3.7 cm the posterior cul-de-sac I discussed the case with Dr. Almaguer and her input is appreciated, this abscess is less likely to be related to reproductive organs however we will keep close monitoring. Surgery team on the case and therefore follow the recommendation was they see the patient 10/09/2020 Patient had an episode of increased abdominal pain overnight with increase in leukocytosis 7-15 K. Still has lower abdominal tenderness. Surgery team, and keep patient nothing by mouth. Hemodynamically stable however we started the patient on D5 normal saline at 75 mL/h for her sugar was low. We'll keep checking her insulin sliding scale. The same time continue with Zosyn and consult interventional radiology per recommendation of the surgical team who recommended at the same time no surgical intervention now. Also discussed the case with Dr. Almaguer, no need for any ORACLE APPLICATION CONSULTANT intervention, primary source most likely GI Objective - Vital Signs Vital signs: Vital Signs Temp 98.6 F 10/09/20 12:47 Pulse 84 10/09/20 12:47 Resp 17 10/09/20 12:47 BP 102/66 10/09/20 12:47 Pulse Ox 95 10/09/20 12:47 Intake & Output 10/09/20 10/09/20 10/10/20 06:59 18:59 06:59 Intake Total 200 400 Balance 200 400 Weight 67.132 kg Intake: Intake, IV Titration 400 Amount Piperacillin-Tazobactam 3 100 .375 gm In Sodium Chloride 0.9% 100 ml @ 25 mls/hr IVPB Q8HR PREM Rx# :[id number] Sodium Chloride 0.9% 1, 300 000 ml @ 75 mls/hr IV . [id number] PREM Rx#:[id number] Oral 200 Other: Voiding Method Toilet # Voids 2 - Exam GENERAL: The patient is alert and oriented x3, not in any acute distress. Well developed, well nourished. HEENT: Pupils are round and equally reacting to light. EOMI. No scleral icterus. No conjunctival pallor. Normocephalic, atraumatic. No pharyngeal erythema. No thyromegaly. CARDIOVASCULAR: S1 and S2 present. No murmurs, rubs, or gallops. PULMONARY: Chest is clear to auscultation, no wheezing or crackles. ABDOMEN: Soft, nontender, nondistended, normoactive bowel sounds. No palpable organomegaly. MUSCULOSKELETAL: No joint swelling or deformity. EXTREMITIES: No cyanosis, clubbing, or pedal edema. NEUROLOGICAL: Gross neurological examination did not reveal any focal deficits. SKIN: No rashes. no petechiae. - Labs CBC & Chem 7: 10/09/20 06:42 10/09/20 06:42 Labs: Abnormal Lab Results - Last 24 Hours (Table) 10/08/20 10/09/20 10/09/20 Range/Units 06:57 06:42 06:42 WBC 15.3 H (3.8-10.6) k/uL Plt Count 138 L (150-450) k/uL Neutrophils # 13.6 H (1.3-7.7) k/uL Lymphocytes # 0.9 L (1.0-4.8) k/uL Carbon Dioxide 16.4 L (21.6-31.8) mmol/L Anion Gap 18.60 H (4.00-12.00) mmol/L BUN 18 H (7-17) mg/dL Glucose 124 H 64 L (70-110) mg/dL POC Glucose (mg/dL) (75-99) mg/dL Calcium 8.5 L (8.7-10.3) mg/dL ALT <8 L (8-44) U/L C-Reactive Protein 14.9 H (0.0-0.8) mg/dL Albumin/Globulin Ratio 1.56 L (1.60-3.17) g/dL 10/09/20 Range/Units 12:57 WBC (3.8-10.6) k/uL Plt Count (150-450) k/uL Neutrophils # (1.3-7.7) k/uL Lymphocytes # (1.0-4.8) k/uL Carbon Dioxide (21.6-31.8) mmol/L Anion Gap (4.00-12.00) mmol/L BUN (7-17) mg/dL Glucose (70-110) mg/dL POC Glucose (mg/dL) 67 L (75-99) mg/dL Calcium (8.7-10.3) mg/dL ALT (8-44) U/L C-Reactive Protein (0.0-0.8) mg/dL Albumin/Globulin Ratio (1.60-3.17) g/dL Microbiology - Last 24 Hours (Table) 10/07/20 16:15 Blood Culture - Preliminary Blood No Growth after 48 hours 10/07/20 16:39 Blood Culture - Preliminary Blood No Growth after 48 hours Assessment and Plan Assessment: posterior cul-de-sac abscess, adjacent to the uterus measuring 5.8 x 2.4 x 3.7 cm. Most likely related to acute diverticulitis. Less likely tubo-ovarian abscess Nicotine dependence Plan: This is a pleasant 60 years old female who presents with abdominal pain for 2 weeks. Suspected acute diverticulitis with abscess, tubo-ovarian abscess felt more likely by radiologist. Continue with antibiotics, we will start the patient on Zosyn and IV fluid Consult intervention radiology Continue with a recommendation of surgical consult Labs and medication were reviewed.. Continue same treatment. Continue with symptomatic treatment. Resume home medication. Monitor lytes and vitals. DVT and GI prophylaxis. Further recommendations as per clinical course of the patient DVT prophylaxis: Subcutaneous heparin GI Prophylaxis: Pepcid Prognosis is guarded
[2020-10-09 21:49] LABS: Glucose,Whole Blood 77 mg/dL (75-99)
[2020-10-09] MEDS: DEXTROSE 5%-0.9% NACL 1,000 ML IV SCH (21:50)
[2020-10-10] MEDS: PIPERACILLIN-TAZOBACTAM 3.375 GM in SODIUM CHLORIDE 0.9% 100 ML IVPB SCH ×3 (00:03→15:39)
[2020-10-10] MEDS: INSULIN ASPART (NovoLOG) 100 UNIT/ML VIAL SQ SCH ×5 (00:08→15:23)
[2020-10-10 00:17] LABS: Glucose,Whole Blood 86 mg/dL (75-99)
[2020-10-10 05:14] LABS: Glucose,Whole Blood 84 mg/dL (75-99)
[2020-10-10] MEDS: KETOROLAC 15 MG/ML 1 ML VIAL IVP PRN ×2 (05:18→12:25)
[2020-10-10 07:10] LABS: Glucose,Whole Blood 97 mg/dL (75-99)
[2020-10-10] MEDS: FAMOTIDINE 20 MG/2 ML VIAL IV SCH ×2 (08:11→21:52)
[2020-10-10] MEDS: HEPARIN SODIUM,PORCINE/PF 5,000 UNIT/0.5 ML SYRINGE SQ SCH ×2 (08:12→21:53)
[2020-10-10] MEDS: NICOTINE 21MG/24HR PATCH TRANSDERM SCH (08:12)
--- NOTE | 2020-10-10 08:52 | P.PN ---
Subjective Progress Note Date: 10/10/20 Principal diagnosis: Hospital day #3, pelvic abscess, suspect diverticular disease Bowel movement this morning. Pain improved. No fevers shakes or chills. Objective - Vital Signs Vital signs: Vital Signs Temp 98.3 F 10/10/20 04:49 Pulse 76 10/10/20 04:49 Resp 18 10/10/20 04:49 BP 110/73 10/10/20 04:49 Pulse Ox 95 10/10/20 04:49 Intake & Output 10/09/20 10/10/20 10/10/20 18:59 06:59 18:59 Intake Total 400 Balance 400 Weight 67.132 kg Intake: Intake, IV Titration 400 Amount Piperacillin-Tazobactam 3 100 .375 gm In Sodium Chloride 0.9% 100 ml @ 25 mls/hr IVPB Q8HR [facility] Rx# :[id number] Sodium Chloride 0.9% 1, 300 000 ml @ 75 mls/hr IV . [id number] PREM Rx#:[id number] Other: Voiding Method Toilet # Voids 1 - Constitutional General appearance: Present: average body habitus, cooperative - EENT Eyes: Present: PERRLA - Neck Neck: Present: normal ROM - Respiratory Respiratory: bilateral: CTA - Cardiovascular Rhythm: regular - Gastrointestinal Gastrointestinal Comment(s): Abdomen less distended, less tender, minimal rebound and guarding. Pain greatly improved. General gastrointestinal: Present: normal bowel sounds - Integumentary Integumentary: Present: normal - Neurologic Neurologic: Present: CNII-XII intact - Musculoskeletal Musculoskeletal: Present: gait normal, strength equal bilaterally - Psychiatric Psychiatric: Present: A&O x's 3, appropriate affect, intact judgment & insight - Labs CBC & Chem 7: 10/09/20 06:42 10/09/20 06:42 Labs: Abnormal Lab Results - Last 24 Hours (Table) 10/09/20 Range/Units 12:57 POC Glucose (mg/dL) 67 L (75-99) mg/dL Microbiology - Last 24 Hours (Table) 10/07/20 16:15 Blood Culture - Preliminary Blood No Growth after 48 hours 10/07/20 16:39 Blood Culture - Preliminary Blood No Growth after 48 hours Assessment and Plan Assessment: Hospital day #3, pelvic abscess, clinically improved. Plan: I have discussed with the patient in detail the differential diagnosis, which includes possible tubo-ovarian abscess. The patient's clinical and social history do not support the diagnosis of PID or tubo-ovarian abscess. I believe this situation is consistent with diverticular disease. Clinical improvement is noted. Consideration for percutaneous needle drainage of the source, interventional radiology consult pending. At this time, I we will sign off the patient's case. I will follow peripherally while the patient remains in-house. Thank you for the consultation. Time with Patient: Less than 30
[2020-10-10 11:12] LABS: Glucose,Whole Blood 91 mg/dL (75-99)
--- NOTE | 2020-10-10 13:41 | P.PN ---
Subjective She follows with no primary care doctor She presents because of abdominal and back pain. Her main pain is in the back and radiating to the left side anteriorly, has been going on for 2 weeks and is getting severe progressively. It was 10/10 when she came in and currently improved with pain medication down to 7/10, it felt like colic that comes and goes, also she vomited a few times. Patient reports no bowel movement for 2 weeks only little stool comes now with pain in the last time she had a stool was about yesterday. She denies fever. No chest pain or dyspnea or weakness or numbness or blurred vision. No headache. No slurred speech. No urinary tract symptoms like no dysuria or increased frequency. She smokes about 1 pack per day and she consulted and agrees to quit, she agrees to the nicotine patch. She drinks alcohol occasionally and no illicit drugs Vitas looks stable. Labs showed leukocytosis of 19.9 K. Rest of CBC, BMP is unremarkable. Potassium is 5.9, however it is hemolyzed specimen. Glucose 128. Rest of BMP are unremarkable. Urine analysis is unremarkable Ortiz virus not detected. Transvaginal ultrasound showing complex abnormality in the posterior cul-de-sac adjacent to the uterus measuring 5.8 x 2[address] of the abdomen and pelvis: Hypodense lesions adjacent sigmoid colon felt to be related to left tubule ovarian abscess. Acute diverticulitis with a small adjacent abscess should be considered within the differential complex abnormality in the posterior cul-de-sac adjacent to the uterus measuring 5.8 x 2.4 x 3.7 cm In the emergency room patient received normal saline at 75 mL/h after 1 L of normal saline. Given 1 dose of ceftriaxone and metronidazole. 10/08/2020 Patient abdominal pain and back pain is better today and retracted as 8/10 but mild, sometimes is Severe cramps at 10/10. She has nausea and little vomiting last night. However she was nothing by mouth this morning. She has normal bowel movement or passing gas. Also patient states that she has no PCP however her insurance assigned her in [place] that she intends to follow-up with. Pelvic ultrasound showing complex abnormality adjacent to the uterus measuring 5.8 x 2.4 x 3.7 cm the posterior cul-de-sac I discussed the case with Dr. Almaguer and her input is appreciated, this abscess is less likely to be related to reproductive organs however we will keep close monitoring. Surgery team on the case and therefore follow the recommendation was they see the patient 10/09/2020 Patient had an episode of increased abdominal pain overnight with increase in leukocytosis 7-15 K. Still has lower abdominal tenderness. Surgery team, and keep patient nothing by mouth. Hemodynamically stable however we started the patient on D5 normal saline at 75 mL/h for her sugar was low. We'll keep checking her insulin sliding scale. The same time continue with Zosyn and consult interventional radiology per recommendation of the surgical team who recommended at the same time no surgical intervention now. Also discussed the case with Dr. Almaguer, no need for any PLANT OPERATOR intervention, primary source most likely GI 10/10/2020 This is a pleasant 60 years old female who presents with abdominal pain and CAT scan showing abdominal abscess of unknown source, suspected mostly due to GI versus PLANT OPERATOR, however her vertical roll operator does not think this is related to her reproductive organs. Patient has been followed closely by PLANT OPERATOR and surgery team closely. Today she reports improvement in her abdominal pain and she was happy having significant large one big bowel movement last night, she still nothing by mouth per surgery team recommendation pending their input today.patient was happy with her improvement today. No other new complaint. Hemodynamically stable No need for surgical intervention per surgery and PLANT OPERATOR, joint and signed off a ctually. IR team were consulted for abscess drainage Currently patient is covered with Zosyn and D5 normal saline at 75, monitor glucose closely as it was 67 this morning, patient is ondextrose 50% as needed Objective - Vital Signs Vital signs: Vital Signs Temp 98.4 F 10/10/20 10:56 Pulse 118 H 10/10/20 10:56 Resp 16 10/10/20 10:56 BP 160/93 10/10/20 10:56 Pulse Ox 96 10/10/20 10:56 Intake & Output 10/09/20 10/10/20 10/10/20 18:59 06:59 18:59 Intake Total 400 Balance 400 Weight 67.132 kg Intake: Intake, IV Titration 400 Amount Piperacillin-Tazobactam 3 100 .375 gm In Sodium Chloride 0.9% 100 ml @ 25 mls/hr IVPB Q8HR [facility] Rx# :[id number] Sodium Chloride 0.9% 1, 300 000 ml @ 75 mls/hr IV . [id number] [facility] Rx#:[id number] Other: Voiding Method Toilet # Voids 1 - Exam GENERAL: The patient is alert and oriented x3, not in any acute distress. Well developed, well nourished. HEENT: Pupils are round and equally reacting to light. EOMI. No scleral icterus. No conjunctival pallor. Normocephalic, atraumatic. No pharyngeal erythema. No thyromegaly. CARDIOVASCULAR: S1 and S2 present. No murmurs, rubs, or gallops. PULMONARY: Chest is clear to auscultation, no wheezing or crackles. ABDOMEN: Soft, nontender, nondistended, normoactive bowel sounds. No palpable organomegaly. MUSCULOSKELETAL: No joint swelling or deformity. EXTREMITIES: No cyanosis, clubbing, or pedal edema. NEUROLOGICAL: Gross neurological examination did not reveal any focal deficits. SKIN: No rashes. no petechiae. - Labs CBC & Chem 7: 10/09/20 06:42 10/09/20 06:42 Labs: Microbiology - Last 24 Hours (Table) 10/07/20 16:15 Blood Culture - Preliminary Blood No Growth after 48 hours 10/07/20 16:39 Blood Culture - Preliminary Blood No Growth after 48 hours Assessment and Plan Assessment: posterior cul-de-sac abscess, adjacent to the uterus measuring 5.8 x 2.4 x 3.7 cm. Most likely related to acute diverticulitis. Less likely tubo-ovarian abscess Nicotine dependence Plan: This is a pleasant 60 years old female who presents with abdominal pain for 2 weeks. Suspected acute diverticulitis with abscess, tubo-ovarian abscess felt more likely by radiologist. Continue with antibiotics, we will start the patient on Zosyn and IV fluid Consult intervention radiology4 SESSILE drainage Continue with a recommendation of surgical consult. PLANT OPERATOR team signed off Labs and medication were reviewed.. Continue same treatment. Continue with symptomatic treatment. Resume home medication. Monitor lytes and vitals. DVT and GI prophylaxis. Further recommendations as per clinical course of the patient DVT prophylaxis: Subcutaneous heparin GI Prophylaxis: Pepcid Prognosis is guarded
--- NOTE | 2020-10-10 14:23 | P.PN ---
Subjective Progress Note Date: 10/10/20 Patient's pain is somewhat improved today. She denies any nausea vomiting she denies any fevers or chills she had multiple bowel movements. Objective - Vital Signs Vital signs: Vital Signs Temp 98.4 F 10/10/20 10:56 Pulse 118 H 10/10/20 10:56 Resp 16 10/10/20 10:56 BP 160/93 10/10/20 10:56 Pulse Ox 96 10/10/20 10:56 Intake & Output 10/09/20 10/10/20 10/10/20 18:59 06:59 18:59 Intake Total 400 Balance 400 Weight 67.132 kg Intake: Intake, IV Titration 400 Amount Piperacillin-Tazobactam 3 100 .375 gm In Sodium Chloride 0.9% 100 ml @ 25 mls/hr IVPB Q8HR [facility] Rx# :[id number] Sodium Chloride 0.9% 1, 300 000 ml @ 75 mls/hr IV . [id number] [facility] Rx#:[id number] Other: Voiding Method Toilet # Voids 1 - Constitutional General appearance: Present: cooperative - Cardiovascular Rhythm: regular - Gastrointestinal Gastrointestinal Comment(s): Soft nondistended mild tenderness palpation in the left lower quadrant - Psychiatric Psychiatric: Present: A&O x's 3 - Labs CBC & Chem 7: 10/09/20 06:42 10/09/20 06:42 Labs: Microbiology - Last 24 Hours (Table) 10/07/20 16:15 Blood Culture - Preliminary Blood No Growth after 48 hours 10/07/20 16:39 Blood Culture - Preliminary Blood No Growth after 48 hours Assessment and Plan Assessment: Abscess/complex fluid collection in pelvis Plan: Follow-up IR recommendations. Continue antibiotics. No plans for acute surgical intervention at this time.
[2020-10-10] MEDS: DEXTROSE 5%-0.9% NACL 1,000 ML IV SCH ×2 (14:50→22:04)
[2020-10-10 17:50] LABS: Glucose,Whole Blood 99 mg/dL (75-99)
[2020-10-10] MEDS: MORPHINE SULFATE 4 MG/ML SYRINGE IV PRN ×2 (18:10→22:01)
[2020-10-10 20:35] LABS: Glucose,Whole Blood 97 mg/dL (75-99)
[2020-10-11] MEDS: INSULIN ASPART (NovoLOG) 100 UNIT/ML VIAL SQ SCH ×5 (00:18→23:42)
[2020-10-11] MEDS: PIPERACILLIN-TAZOBACTAM 3.375 GM in SODIUM CHLORIDE 0.9% 100 ML IVPB SCH ×4 (00:19→23:42)
[2020-10-11 02:25] LABS: Glucose,Whole Blood 93 mg/dL (75-99)
[2020-10-11] MEDS: MORPHINE SULFATE 4 MG/ML SYRINGE IV PRN ×4 (05:11→22:16)
[2020-10-11] MEDS: ONDANSETRON 4 MG/2 ML VIAL IVP PRN (05:11)
[2020-10-11 06:59] LABS: Glucose,Whole Blood 102 mg/dL (75-99)
[2020-10-11 07:13] LABS: Basophils % (A) 0 %; Eosinophils # (A) 0.1 k/uL (0-0.7); Eosinophils % (A) 1 %; HCT 41.1 % (34.0-46.0); HGB 13.7 gm/dL (11.4-16.0); Lymphocytes # (A) 0.9 k/uL (1.0-4.8); Lymphocytes % (A) 6 %; MCH 32.9 pg (25.0-35.0); MCHC 33.3 g/dL (31.0-37.0); MCV 98.8 fL (80.0-100.0); Mean Platelet Volume 9.3; Monocytes # (A) 0.9 k/uL (0-1.0); Monocytes % (A) 6 %; Neutrophils # (A) 13.6 k/uL (1.3-7.7); Neutrophils % (A) 86 %; Platelet Count 140 k/uL (150-450); RBC 4.16 m/uL (3.80-5.40); WBC 15.8 k/uL (3.8-10.6)
[2020-10-11] MEDS: NICOTINE 21MG/24HR PATCH TRANSDERM SCH (08:26)
[2020-10-11] MEDS: FAMOTIDINE 20 MG/2 ML VIAL IV SCH ×2 (08:26→20:17)
[2020-10-11] MEDS: HEPARIN SODIUM,PORCINE/PF 5,000 UNIT/0.5 ML SYRINGE SQ SCH ×3 (08:26→20:20)
[2020-10-11 10:26] LABS: Basophils % (A) 0 %; Eosinophils # (A) 0.2 k/uL (0-0.7); Eosinophils % (A) 1 %; HCT 41.9 % (34.0-46.0); HGB 13.9 gm/dL (11.4-16.0); Lymphocytes # (A) 0.9 k/uL (1.0-4.8); Lymphocytes % (A) 6 %; MCH 32.6 pg (25.0-35.0); MCHC 33.1 g/dL (31.0-37.0); MCV 98.3 fL (80.0-100.0); Mean Platelet Volume 9.4; Monocytes # (A) 0.9 k/uL (0-1.0); Monocytes % (A) 5 %; Neutrophils # (A) 13.7 k/uL (1.3-7.7); Neutrophils % (A) 86 %; Platelet Count 149 k/uL (150-450); RBC 4.26 m/uL (3.80-5.40); WBC 15.9 k/uL (3.8-10.6)
--- NOTE | 2020-10-11 12:34 | P.PN ---
Subjective Progress Note Date: 10/11/20 Patient's pain is somewhat improved today. She denies any nausea vomiting she denies any fevers or chills she had multiple bowel movements. Objective - Vital Signs Vital signs: Vital Signs Temp 98.3 F 10/11/20 11:35 Pulse 74 10/11/20 11:35 Resp 20 10/11/20 11:35 BP 147/87 10/11/20 11:35 Pulse Ox 96 10/11/20 11:35 Intake & Output 10/10/20 10/11/20 10/11/20 18:59 06:59 18:59 Intake Total 400 Balance 400 Intake: Intake, IV Titration 400 Amount Dextrose 5%-0.9% NaCl 1, 300 000 ml @ 75 mls/hr IV . [id number] [facility] Rx#:[id number] Piperacillin-Tazobactam 3 100 .375 gm In Sodium Chloride 0.9% 100 ml @ 25 mls/hr IVPB Q8HR [facility] Rx# :[id number] Other: Voiding Method Toilet # Voids 0 # Bowel Movements 5 0 - Constitutional General appearance: Present: cooperative - Cardiovascular Rhythm: regular - Gastrointestinal Gastrointestinal Comment(s): S/ND minimal TTP LLQ - Labs CBC & Chem 7: 10/11/20 10:04 10/09/20 06:42 Labs: Abnormal Lab Results - Last 24 Hours (Table) 10/11/20 10/11/20 10/11/20 Range/Units 06:20 06:58 10:04 WBC 15.8 H 15.9 H (3.8-10.6) k/uL Plt Count 140 L 149 L (150-450) k/uL Neutrophils # 13.6 H 13.7 H (1.3-7.7) k/uL Lymphocytes # 0.9 L 0.9 L (1.0-4.8) k/uL POC Glucose (mg/dL) 102 H (75-99) mg/dL Microbiology - Last 24 Hours (Table) 10/07/20 16:15 Blood Culture - Preliminary Blood No Growth after 72 hours 10/07/20 16:39 Blood Culture - Preliminary Blood No Growth after 72 hours Assessment and Plan Assessment: Abscess/complex fluid collection in pelvis Plan: I had a discussion with radiology today who felt this was less likely diverticulitis due to the appearance of surrounding colon and tissue with minimal inflammation. Given her leukocytosis and persumed abscess however we will proceed with attempted IR drainage. Cont NPO and ABX
[2020-10-11 12:56] LABS: African American GFR (CKD) 113.2 (60.0-200.0); Anion Gap 8.3 mmol/L (4.00-12.00); BUN/Creat Ratio 16.67 Ratio (12.00-20.00); Calcium 7.9 mg/dL (8.7-10.3); Carbon Dioxide 25.7 mmol/L (21.6-31.8); Magnesium 1.9 mg/dL (1.5-2.4); Non-African American GFR(CKD) 97.7 (60.0-200.0); Potassium 3.5 mmol/L (3.5-5.5)
--- NOTE | 2020-10-11 13:14 | CT ---
EXAMINATION TYPE: CT discontinued procedure DATE OF EXAM: 10/11/2020 COMPARISON: 10/07/2020 HISTORY: H/O LEFT PELVIC ABSCESS, CANCLED BECAUSE OF HIGH BP CT DLP: 454 mGycm Automated exposure control for dose reduction was used. FINDINGS: The patient's blood pressure was 179/114. Procedure was discontinued. IMPRESSION: DISCONTINUED PROCEDURE DUE TO HYPERTENSION
[2020-10-11] MEDS ORDERED: hydrALAZINE HCL 25 MG TAB PO PRN (14:39)
--- NOTE | 2020-10-11 15:43 | P.PN ---
Subjective Progress Note Date: 10/11/20 This is a 60-year-old female who was recently admitted with abdominal and back pain that is radiating to the left side anteriorly and has been ongoing for 2 weeks and getting progressively worse. She is being closely monitored and also being followed by surgery recommending interventional radiology guided possible drainage abscess of the abdomen today. Patient was brought down for the possibility of this drainage and patient was hypertensive and the procedure was aborted. Continues on IV antibiotics and will continue at this time. Patient is on IV Zosyn with Dr. veronica clifford. White blood count today is 15.9 with hemoglobin of 13.9, sodium is 144 with a potassium of 3.5 and current creatinine is 0.6. Magnesium is 1.9. Patient is on gentle IV fluids in the form of dextrose and normal saline as she was having some low blood sugar readings and has been nothing by mouth and will continue with Accu-Cheks and monitor closely. Will add hydralazine as needed for blood pressure control along with Norvasc 10 mg daily with attempts at possibly repeating IR guarded drainage abscess in the morning. Review of systems: Constitutional: No reports of fatigue, fever, or chills Cardiovascular: No reports of chest pain or palpitations Respiratory: No reports of shortness of breath or cough GI: No reports of nausea, vomiting, or diarrhea, reports some abdominal discomfort : No reports of dysuria or retention Neurovascular: No reports of weakness or numbness All medications have been reviewed Objective - Vital Signs Vital signs: Vital Signs Temp 98.3 F 10/11/20 11:35 Pulse 74 10/11/20 11:35 Resp 20 10/11/20 11:35 BP 147/87 10/11/20 11:35 Pulse Ox 96 10/11/20 11:35 Intake & Output 10/10/20 10/11/20 10/11/20 18:59 06:59 18:59 Intake Total 400 Balance 400 Intake: Intake, IV Titration 400 Amount Dextrose 5%-0.9% NaCl 1, 300 000 ml @ 75 mls/hr IV . [id number] [facility] Rx#:[id number] Piperacillin-Tazobactam 3 100 .375 gm In Sodium Chloride 0.9% 100 ml @ 25 mls/hr IVPB Q8HR [facility] Rx# :[id number] Other: Voiding Method Toilet # Voids 0 # Bowel Movements 5 0 - Exam GENERAL: The patient is alert and oriented x3, not in any acute distress. Well developed, well nourished. HEENT: Pupils are round and equally reacting to light. EOMI. No scleral icterus. No conjunctival pallor. Normocephalic, atraumatic. No pharyngeal erythema. No thyromegaly. CARDIOVASCULAR: S1 and S2 muffled PULMONARY: Diminished breath sounds bilaterally with no wheezing or rhonchi noted ABDOMEN: Soft, mildly tender, nondistended, normoactive bowel sounds. No palpable organomegaly. MUSCULOSKELETAL: No joint swelling or deformity. EXTREMITIES: No cyanosis, clubbing, or pedal edema. NEUROLOGICAL: Gross neurological examination did not reveal any focal deficits. SKIN: No rashes. no petechiae. - Labs CBC & Chem 7: 10/11/20 10:04 10/11/20 06:20 Labs: Abnormal Lab Results - Last 24 Hours (Table) 10/11/20 10/11/20 10/11/20 Range/Units 06:20 06:58 10:04 WBC 15.8 H 15.9 H (3.8-10.6) k/uL Plt Count 140 L 149 L (150-450) k/uL Neutrophils # 13.6 H 13.7 H (1.3-7.7) k/uL Lymphocytes # 0.9 L 0.9 L (1.0-4.8) k/uL POC Glucose (mg/dL) 102 H (75-99) mg/dL Microbiology - Last 24 Hours (Table) 10/07/20 16:15 Blood Culture - Preliminary Blood No Growth after 72 hours 10/07/20 16:39 Blood Culture - Preliminary Blood No Growth after 72 hours Assessment and Plan Assessment: posterior cul-de-sac abscess, adjacent to the uterus measuring 5.8 x 2.4 x 3.7 cm. Most likely related to acute diverticulitis. Less likely tubo-ovarian abscess Continued ongoing nicotine dependence Hypertension Leukocytosis DVT prophylaxis GI prophylaxis Full code Recommendations and discussion: Recommend continuing current medications, management, and symptomatic treatment. Surgery Dr. martin following and plans were for IR guided abscess drainage although patient was having elevated blood pressures and will add Norvasc along with hydralazine as needed and continue to monitor blood pressures closely. Patient continues on IV antibiotic some form of Zosyn and will continue at this time. Patient also continues on D5 with normal saline as she has been nothing by mouth and having low blood sugars. Recommend continue monitoring Accu-Cheks before meals and at bedtime and will continue sliding scale as needed. White blood count continues to be elevated at 15.9 and hemoglobin is stable at 13.9, potassium slightly low at 3.5 and will give a dose and repeat a.m. labs. Due to multiple complex medical issues, prognosis is guarded. Further recommendations to follow.
[2020-10-11] MEDS: amLODIPine 10 MG TAB PO SCH (15:56)
[2020-10-11 16:55] LABS: Glucose,Whole Blood 96 mg/dL (75-99)
[2020-10-11] MEDS: DEXTROSE 5%-0.9% NACL 1,000 ML IV SCH (17:15)
[2020-10-11 19:49] LABS: Glucose,Whole Blood 109 mg/dL (75-99)
[2020-10-11] MEDS: ALPRAZolam 0.25 MG TAB PO PRN (20:17)
[2020-10-11 23:42] LABS: Glucose,Whole Blood 109 mg/dL (75-99)
[2020-10-12] MEDS: MORPHINE SULFATE 4 MG/ML SYRINGE IV PRN ×2 (03:47→09:33)
[2020-10-12] MEDS: DEXTROSE 5%-0.9% NACL 1,000 ML IV SCH ×2 (03:48→15:38)
[2020-10-12 05:31] LABS: Glucose,Whole Blood 102 mg/dL (75-99)
[2020-10-12] MEDS: INSULIN ASPART (NovoLOG) 100 UNIT/ML VIAL SQ SCH ×4 (05:34→23:59)
[2020-10-12] MEDS: FAMOTIDINE 20 MG/2 ML VIAL IV SCH ×2 (08:13→19:24)
[2020-10-12] MEDS: HEPARIN SODIUM,PORCINE/PF 5,000 UNIT/0.5 ML SYRINGE SQ SCH ×2 (08:13→19:23)
[2020-10-12] MEDS: PIPERACILLIN-TAZOBACTAM 3.375 GM in SODIUM CHLORIDE 0.9% 100 ML IVPB SCH ×3 (08:13→23:29)
[2020-10-12] MEDS: NICOTINE 21MG/24HR PATCH TRANSDERM SCH (08:13)
[2020-10-12] MEDS: amLODIPine 10 MG TAB PO SCH (08:22)
[2020-10-12] MEDS: ALPRAZolam 0.25 MG TAB PO PRN (09:34)
[2020-10-12 09:57] LABS: Basophils # (A) 0.1 k/uL (0-0.2); Basophils % (A) 0 %; Eosinophils # (A) 0.2 k/uL (0-0.7); Eosinophils % (A) 1 %; HCT 43.7 % (34.0-46.0); HGB 14.7 gm/dL (11.4-16.0); Lymphocytes % (A) 6 %; MCH 33.2 pg (25.0-35.0); MCHC 33.6 g/dL (31.0-37.0); MCV 98.8 fL (80.0-100.0); Mean Platelet Volume 9.1; Monocytes # (A) 1.1 k/uL (0-1.0); Monocytes % (A) 6 %; Neutrophils # (A) 14.7 k/uL (1.3-7.7); Neutrophils % (A) 85 %; Platelet Count 175 k/uL (150-450); RBC 4.42 m/uL (3.80-5.40); RDW 12.9 % (11.5-15.5); WBC 17.3 k/uL (3.8-10.6)
[2020-10-12 10:24] LABS: ALT 8 U/L (4-34); AST 16 U/L (14-36); African American GFR (CKD) >90 (>60 ml/min/1.73 sqM); Albumin 3.1 g/dL (3.5-5.0); Albumin/Globulin Ratio 1.1; Alkaline Phosphatase 117 U/L (38-126); Anion Gap 6 mmol/L; Blood Urea Nitrogen 3 mg/dL (7-17); Calcium 8.3 mg/dL (8.4-10.2); Carbon Dioxide 30 mmol/L (22-30); Chloride 105 mmol/L (98-107); Globulin 2.7 g/dL; Glucose 97 mg/dL (74-99); Non-African American GFR(CKD) >90 (>60 ml/min/1.73 sqM); Potassium 3.1 mmol/L (3.5-5.1); Sodium 141 mmol/L (137-145); Total Protein 5.8 g/dL (6.3-8.2)
[2020-10-12 11:14] LABS: Glucose,Whole Blood 99 mg/dL (75-99)
--- NOTE | 2020-10-12 11:14 | CT ---
EXAMINATION TYPE: CT guided abscess drainage DATE OF EXAM: 10/12/2020 COMPARISON: 10/07/2020 HISTORY: Request for left pelvic fluid collection fine needle aspiration CT DLP: 832 mGycm The procedure is discussed with the patient, the risks, complications, benefits and alternatives, wer e discussed and any questions were answered. Informed consent was obtained. The patient is placed p rupesh on the CT table, prepped and draped in the usual sterile fashion. Utilizing a 22-gauge Chiba needle access into the requested left pelvic fluid collection was achieved with aspiration of approximately 45 cc of purulent material. Pathology pending. All elements of ma ximal barrier and sterile technique were utilized. The patient remained stable throughout the proced ure with no immediate postprocedural complication. IMPRESSION: 1. Successful CT guided fine needle aspiration of a left pelvic fluid collection.
[2020-10-12] MEDS ORDERED: Potassium Replacement Protocol 1 EACH MISC MISCELLANE PRN (12:58)
--- NOTE | 2020-10-12 14:57 | P.PN ---
Subjective Progress Note Date: 10/12/20 Underwent IR guided drainage of abscess, 45cc of purulent drainage reported. Patient is feeling better and states her pain is improved. . Objective - Vital Signs Vital signs: Vital Signs Temp 98.5 F 10/12/20 11:14 Pulse 87 10/12/20 11:14 Resp 18 10/12/20 11:14 BP 116/78 10/12/20 11:14 Pulse Ox 92 L 10/12/20 11:14 Intake & Output 10/11/20 10/12/20 10/12/20 18:59 06:59 18:59 Intake Total 1000 Balance 1000 Weight 67.132 kg Intake: Intake, IV Titration 1000 Amount Dextrose 5%-0.9% NaCl 1, 900 000 ml @ 75 mls/hr IV . [id number] [facility] Rx#:[id number] Piperacillin-Tazobactam 3 100 .375 gm In Sodium Chloride 0.9% 100 ml @ 25 mls/hr IVPB Q8HR [facility] Rx# :[id number] Other: Voiding Method Toilet # Voids 2 3 # Bowel Movements 0 - Constitutional General appearance: Present: cooperative - Cardiovascular Rhythm: regular - Gastrointestinal Gastrointestinal Comment(s): S/NT/ND - Labs CBC & Chem 7: 10/12/20 09:45 10/12/20 09:45 Labs: Abnormal Lab Results - Last 24 Hours (Table) 10/11/20 10/11/20 10/12/20 Range/Units 19:48 23:41 05:29 WBC (3.8-10.6) k/uL Neutrophils # (1.3-7.7) k/uL Monocytes # (0-1.0) k/uL Potassium (3.5-5.1) mmol/L BUN (7-17) mg/dL Creatinine (0.52-1.04) mg/dL POC Glucose (mg/dL) 109 H 109 H 102 H (75-99) mg/dL Calcium (8.4-10.2) mg/dL Total Protein (6.3-8.2) g/dL Albumin (3.5-5.0) g/dL 10/12/20 10/12/20 Range/Units 09:45 09:45 WBC 17.3 H (3.8-10.6) k/uL Neutrophils # 14.7 H (1.3-7.7) k/uL Monocytes # 1.1 H (0-1.0) k/uL Potassium 3.1 L (3.5-5.1) mmol/L BUN 3 L (7-17) mg/dL Creatinine 0.50 L (0.52-1.04) mg/dL POC Glucose (mg/dL) (75-99) mg/dL Calcium 8.3 L (8.4-10.2) mg/dL Total Protein 5.8 L (6.3-8.2) g/dL Albumin 3.1 L (3.5-5.0) g/dL Microbiology - Last 24 Hours (Table) 10/07/20 16:15 Blood Culture - Preliminary Blood No Growth after 96 hours 10/07/20 16:39 Blood Culture - Preliminary Blood No Growth after 96 hours Assessment and Plan Assessment: Abscess/complex fluid collection in pelvis Plan: Continue abx, patient may have clear liquid diet as tolerated. ID consult regarding ABX
--- NOTE | 2020-10-12 14:57 | P.PN ---
Subjective Progress Note Date: 10/12/20 This is a 60-year-old female who was recently admitted with abdominal and back pain that is radiating to the left side anteriorly and has been ongoing for 2 weeks and getting progressively worse. She is being closely monitored and also being followed by surgery recommending interventional radiology guided possible drainage abscess of the abdomen today. Patient was brought down for the possibility of this drainage and patient was hypertensive and the procedure was aborted. Continues on IV antibiotics and will continue at this time. Patient is on IV Zosyn with Dr. veronica clifford. White blood count today is 15.9 with hemoglobin of 13.9, sodium is 144 with a potassium of 3.5 and current creatinine is 0.6. Magnesium is 1.9. Patient is on gentle IV fluids in the form of dextrose and normal saline as she was having some low blood sugar readings and has been nothing by mouth and will continue with Accu-Cheks and monitor closely. Will add hydralazine as needed for blood pressure control along with Norvasc 10 mg daily with attempts at possibly repeating IR guarded drainage abscess in the morning. 10/12/2020 Patient is seen and evaluated and follow-up this morning continues to have some generalized abdominal discomfort. She was started on amlodipine and tolerated and blood pressure is more manageable and patient will undergo IR guided drainage of the abscess. Patient continues on IV antibiotics and infectious disease has been consulted and appreciate input on determining discharge antibiotics. Cultures were obtained during the drainage which was reported as purulent and awaiting for culture finalization to determine antibiotics upon discharge. Patient will be started on clear liquids and monitor closely for tolerance. No reports of chest pain or palpitations. Patient denies shortness of breath. Patient is afebrile. Blood count today is elevated at 17.3 and hemoglobin is stable at 14.7, sodium is 141 and potassium is 3.1 and will replace and repeat a.m. labs. Review of systems: Constitutional: No reports of fatigue, fever, or chills Cardiovascular: No reports of chest pain or palpitations Respiratory: No reports of shortness of breath or cough GI: No reports of nausea, vomiting, or diarrhea, reports some abdominal discomfort but feels much improved : No reports of dysuria or retention Neurovascular: No reports of weakness or numbness All medications have been reviewed Objective - Vital Signs Vital signs: Vital Signs Temp 98.4 F 10/12/20 03:51 Pulse 79 10/12/20 03:51 Resp 18 10/12/20 03:51 BP 119/77 10/12/20 08:15 Pulse Ox 93 L 10/12/20 03:51 Intake & Output 10/11/20 10/12/20 10/12/20 18:59 06:59 18:59 Intake Total 1000 Balance 1000 Intake: Intake, IV Titration 1000 Amount Dextrose 5%-0.9% NaCl 1, 900 000 ml @ 75 mls/hr IV . [id number] [facility] Rx#:[id number] Piperacillin-Tazobactam 3 100 .375 gm In Sodium Chloride 0.9% 100 ml @ 25 mls/hr IVPB Q8HR [facility] Rx# :[id number] Other: Voiding Method Toilet # Voids 2 3 # Bowel Movements 0 - Exam GENERAL: The patient is alert and oriented x3, not in any acute distress. Well developed, well nourished. Temp is 98.5F, pulse is 87, respirations are 18, blood pressure is 116/78, oxygen saturation is 92-96% on room air. HEENT: Pupils are round and equally reacting to light. EOMI. No scleral icterus. No conjunctival pallor. Normocephalic, atraumatic. No pharyngeal erythema. No thyromegaly. CARDIOVASCULAR: S1 and S2 muffled PULMONARY: Diminished breath sounds bilaterally with no wheezing or rhonchi noted ABDOMEN: Soft, mildly tender, nondistended, normoactive bowel sounds. No palpable organomegaly. MUSCULOSKELETAL: No joint swelling or deformity. EXTREMITIES: No cyanosis, clubbing, or pedal edema. NEUROLOGICAL: Gross neurological examination did not reveal any focal deficits. SKIN: No rashes. no petechiae. - Labs CBC & Chem 7: 10/12/20 09:45 10/12/20 09:45 Labs: Abnormal Lab Results - Last 24 Hours (Table) 10/11/20 10/11/20 10/11/20 Range/Units 06:20 10:04 19:48 WBC 15.9 H (3.8-10.6) k/uL Plt Count 149 L (150-450) k/uL Neutrophils # 13.7 H (1.3-7.7) k/uL Lymphocytes # 0.9 L (1.0-4.8) k/uL Chloride 110 H (96-109) mmol/L POC Glucose (mg/dL) 109 H (75-99) mg/dL Calcium 7.9 L (8.7-10.3) mg/dL 10/11/20 10/12/20 Range/Units 23:41 05:29 WBC (3.8-10.6) k/uL Plt Count (150-450) k/uL Neutrophils # (1.3-7.7) k/uL Lymphocytes # (1.0-4.8) k/uL Chloride (96-109) mmol/L POC Glucose (mg/dL) 109 H 102 H (75-99) mg/dL Calcium (8.7-10.3) mg/dL Microbiology - Last 24 Hours (Table) 10/07/20 16:15 Blood Culture - Preliminary Blood No Growth after 96 hours 10/07/20 16:39 Blood Culture - Preliminary Blood No Growth after 96 hours Assessment and Plan Assessment: posterior cul-de-sac abscess, adjacent to the uterus measuring 5.8 x 2.4 x 3.7 cm. Most likely related to acute diverticulitis. Less likely tubo-ovarian abscess Continued ongoing nicotine dependence Hypertension Leukocytosis DVT prophylaxis GI prophylaxis Full code Recommendations and discussion: Recommend continuing current medications, management, and symptomatic treatment. Surgery Dr. martin following and patient underwent IR guided abscess drainage and cultures were obtained and pending at this time. Patient continues on IV antibiotic some form of Zosyn and will continue at this time. Infectious disease consulted and appreciate recommendations on discharge antibiotics. Will await culture finalization as patient may require IV antibiotic therapy in the outpatient setting. Patient also continues on D5 with normal saline as she has been nothing by mouth and having low blood sugars. Will add clear liquids and monitor closely for tolerating slowly advanced per surgery recommendations. Recommend continue monitoring Accu-Cheks before meals and at bedtime and will continue sliding scale as needed. White blood count continues to be elevated at 17.3 and hemoglobin is stable at 14.7, potassium slightly low at 3.1 and will replace per protocol and repeat a.m. labs. Due to multiple complex medical issu es, prognosis is guarded. Further recommendations to follow.
[2020-10-12 16:54] LABS: Glucose,Whole Blood 100 mg/dL (75-99)
[2020-10-12 20:53] LABS: Glucose,Whole Blood 112 mg/dL (75-99)
[2020-10-13] MEDS: ALPRAZolam 0.25 MG TAB PO PRN (00:52)
[2020-10-13] MEDS: DEXTROSE 5%-0.9% NACL 1,000 ML IV SCH (06:46)
[2020-10-13 07:06] LABS: Basophils % (A) 0 %; Eosinophils # (A) 0.1 k/uL (0-0.7); Eosinophils % (A) 1 %; HCT 38.6 % (34.0-46.0); Lymphocytes # (A) 1.4 k/uL (1.0-4.8); Lymphocytes % (A) 10 %; MCH 32.7 pg (25.0-35.0); MCHC 33.7 g/dL (31.0-37.0); MCV 97.1 fL (80.0-100.0); Monocytes # (A) 1.2 k/uL (0-1.0); Monocytes % (A) 9 %; Neutrophils # (A) 10.4 k/uL (1.3-7.7); Neutrophils % (A) 78 %; Platelet Count 170 k/uL (150-450); RBC 3.98 m/uL (3.80-5.40); RDW 12.8 % (11.5-15.5); WBC 13.3 k/uL (3.8-10.6)
[2020-10-13 07:19] LABS: Glucose,Whole Blood 103 mg/dL (75-99)
[2020-10-13] MEDS: INSULIN ASPART (NovoLOG) 100 UNIT/ML VIAL SQ SCH ×4 (07:20→23:48)
[2020-10-13] MEDS: PIPERACILLIN-TAZOBACTAM 3.375 GM in SODIUM CHLORIDE 0.9% 100 ML IVPB SCH ×3 (07:47→23:43)
[2020-10-13] MEDS: HEPARIN SODIUM,PORCINE/PF 5,000 UNIT/0.5 ML SYRINGE SQ SCH ×2 (07:48→20:57)
[2020-10-13] MEDS: NICOTINE 21MG/24HR PATCH TRANSDERM SCH (07:48)
[2020-10-13] MEDS: FAMOTIDINE 20 MG/2 ML VIAL IV SCH ×2 (07:48→20:57)
[2020-10-13] MEDS: amLODIPine 5 MG TAB PO SCH ×2 (07:48→08:41)
[2020-10-13 10:41] LABS: African American GFR (CKD) 120.2 (60.0-200.0); Blood Urea Nitrogen <5.0 mg/dL (9.0-27.0); Calcium 8.1 mg/dL (8.7-10.3); Carbon Dioxide 28.8 mmol/L (21.6-31.8); Chloride 105 mmol/L (96-109); Glucose 98 mg/dL (70-110); Non-African American GFR(CKD) 103.7 (60.0-200.0); Potassium 2.8 mmol/L (3.5-5.5); Sodium 141 mmol/L (135-145)
[2020-10-13 11:39] LABS: Glucose,Whole Blood 106 mg/dL (75-99)
[2020-10-13] MEDS ORDERED: Potassium Replacement Protocol 1 EACH MISC MISCELLANE PRN (11:49)
[2020-10-13] MEDS: POTASSIUM CHLORIDE ER 20 MEQ TAB.ER PO SCH ×4 (12:06→23:44)
--- NOTE | 2020-10-13 13:54 | P.PN ---
Subjective Progress Note Date: 10/13/20 This is a 60-year-old female who was recently admitted with abdominal and back pain that is radiating to the left side anteriorly and has been ongoing for 2 weeks and getting progressively worse. She is being closely monitored and also being followed by surgery recommending interventional radiology guided possible drainage abscess of the abdomen today. Patient was brought down for the possibility of this drainage and patient was hypertensive and the procedure was aborted. Continues on IV antibiotics and will continue at this time. Patient is on IV Zosyn with Dr. veronica clifford. White blood count today is 15.9 with hemoglobin of 13.9, sodium is 144 with a potassium of 3.5 and current creatinine is 0.6. Magnesium is 1.9. Patient is on gentle IV fluids in the form of dextrose and normal saline as she was having some low blood sugar readings and has been nothing by mouth and will continue with Accu-Cheks and monitor closely. Will add hydralazine as needed for blood pressure control along with Norvasc 10 mg daily with attempts at possibly repeating IR guarded drainage abscess in the morning. 10/12/2020 Patient is seen and evaluated and follow-up this morning continues to have some generalized abdominal discomfort. She was started on amlodipine and tolerated and blood pressure is more manageable and patient will undergo IR guided drainage of the abscess. Patient continues on IV antibiotics and infectious disease has been consulted and appreciate input on determining discharge antibiotics. Cultures were obtained during the drainage which was reported as purulent and awaiting for culture finalization to determine antibiotics upon discharge. Patient will be started on clear liquids and monitor closely for tolerance. No reports of chest pain or palpitations. Patient denies shortness of breath. Patient is afebrile. Blood count today is elevated at 17.3 and hemoglobin is stable at 14.7, sodium is 141 and potassium is 3.1 and will replace and repeat a.m. labs. 10/13/2020 Patient is seen in follow-up this morning and potassium was low found to be 2.8 and will replace per protocol and repeat labs and monitor closely. White count trending down at 13.3 and hemoglobin is stable at 13.0. Infectious disease following and awaiting for culture finalization from the abscess drainage to determine discharge antibiotics and the need for possible IV antibiotic therapy in the outpatient setting. Surgery also following closely. Patient continues on IV Zosyn and will continue at this time while waiting for cultures. Blood cultures remain negative. Patient having intermittent low-grade temperatures of 99 and will continue to monitor closely. Blood pressure being closely monitored and patient was having some lower readings and will discontinue Norvasc and continue to monitor closely. Patient does not normally take any medications for hypertension. Patient continues on clear liquids and will discuss with surgery about possibly advancing slowly as tolerated. Review of systems: Constitutional: Reports of fatigue, with occasional fever, no reports of chills Cardiovascular: No reports of chest pain or palpitations Respiratory: No reports of shortness of breath or cough GI: No reports of nausea, vomiting, or diarrhea : No reports of dysuria or retention Neurovascular: No reports of weakness or numbness All medications have been reviewed Objective - Vital Signs Vital signs: Vital Signs Temp 99.8 F H 10/12/20 19:53 Pulse 76 10/13/20 04:07 Resp 16 10/13/20 04:07 BP 104/69 10/13/20 04:07 Pulse Ox 92 L 10/13/20 04:07 Intake & Output 10/12/20 10/13/20 10/13/20 18:59 06:59 18:59 Intake Total 1100 820 Balance 1100 820 Weight 67.132 kg Intake: Intake, IV Titration 1100 700 Amount Dextrose 5%-0.9% NaCl 1, 900 600 000 ml @ 75 mls/hr IV . [id number] [facility] Rx#:[id number] Piperacillin-Tazobactam 3 200 100 .375 gm In Sodium Chloride 0.9% 100 ml @ 25 mls/hr IVPB Q8HR [facility] Rx# :[id number] Oral 120 Other: Voiding Method Toilet # Voids 1 - Exam GENERAL: The patient is alert and oriented x3, not in any acute distress. Well developed, well nourished. Temp is 99.0F, pulse is 80, respirations are 18, blood pressure is 134/84, oxygen saturation is 94% on room air. HEENT: Pupils are round and equally reacting to light. EOMI. No scleral icterus. No conjunctival pallor. Normocephalic, atraumatic. No pharyngeal erythema. No thyromegaly. CARDIOVASCULAR: S1 and S2 muffled PULMONARY: Diminished breath sounds bilaterally with no wheezing or rhonchi noted ABDOMEN: Soft, mildly tender, nondistended, normoactive bowel sounds. No palpable organomegaly. MUSCULOSKELETAL: No joint swelling or deformity. EXTREMITIES: No cyanosis, clubbing, or pedal edema. NEUROLOGICAL: Gross neurological examination did not reveal any focal deficits. SKIN: No rashes. no petechiae. - Labs CBC & Chem 7: 10/13/20 06:19 10/13/20 06:19 Labs: Abnormal Lab Results - Last 24 Hours (Table) 10/12/20 10/12/20 10/13/20 Range/Units 16:53 20:52 06:19 WBC 13.3 H (3.8-10.6) k/uL Neutrophils # 10.4 H (1.3-7.7) k/uL Monocytes # 1.2 H (0-1.0) k/uL Potassium (3.5-5.5) mmol/L BUN (9.0-27.0) mg/dL Creatinine (0.6-1.5) mg/dL POC Glucose (mg/dL) 100 H 112 H (75-99) mg/dL Calcium (8.7-10.3) mg/dL 10/13/20 10/13/20 10/13/20 Range/Units 06:19 07:09 11:34 WBC (3.8-10.6) k/uL Neutrophils # (1.3-7.7) k/uL Monocytes # (0-1.0) k/uL Potassium 2.8 L (3.5-5.5) mmol/L BUN <5.0 L (9.0-27.0) mg/dL Creatinine 0.5 L (0.6-1.5) mg/dL POC Glucose (mg/dL) 103 H 106 H (75-99) mg/dL Calcium 8.1 L (8.7-10.3) mg/dL Microbiology - Last 24 Hours (Table) 10/12/20 10:37 Gram Stain - Preliminary Aspirate Body Fluid Culture - Preliminary 10/12/20 10:37 Anaerobic Culture - Preliminary Aspirate 10/07/20 16:15 Blood Culture - Preliminary Blood No Growth after 120 hours 10/07/20 16:39 Blood Culture - Preliminary Blood No Growth after 120 hours Assessment and Plan Assessment: posterior cul-de-sac abscess, adjacent to the uterus measuring 5.8 x 2.4 x 3.7 cm. Most likely related to acute diverticulitis. Less likely tubo-ovarian abscess Continued ongoing nicotine dependence Hypokalemia Hypertension Leukocytosis DVT prophylaxis GI prophylaxis Full code Recommendations and discussion: Recommend continuing current medications, management, and symptomatic treatment. Surgery Dr. Andres/ Cristina following and patient underwent IR guided abscess drainage and cultures were obtained and pending at this time. Patient continues on IV antibiotic some form of Zosyn and will continue at this time. Infectious disease consulted and appreciate recommendations on discharge antibiotics. Will await culture finalization as patient may require IV antibiotic therapy in the outpatient setting. Patient continues on clear liquids and tolerating per surgery recommendations. Recommend continue monitoring Accu-Cheks before meals and at bedtime and will continue sliding scale as needed. White blood count trending down at 13.3 , potassium low at 2.8 and will replace per protocol and repeat a.m. labs. Due to multiple complex medical issues, prognosis is guarded. Further recommendations to follow. Will consult case management in case the patient may need IV antibiotic therapy outpatient upon discharge.
--- NOTE | 2020-10-13 14:19 | P.PN ---
Subjective Progress Note Date: 10/13/20 Patient seen and examined at bedside. States she is feeling better after abscess drainage by IR. She states she is starting to have bowel movements and she is having some pain during bowel movements. She is tolerating liquid diet. Objective - Vital Signs Vital signs: Vital Signs Temp 99 F 10/13/20 12:03 Pulse 80 10/13/20 12:03 Resp 18 10/13/20 12:03 BP 134/84 10/13/20 12:03 Pulse Ox 94 L 10/13/20 12:03 Intake & Output 10/12/20 10/13/20 10/13/20 18:59 06:59 18:59 Intake Total 1100 820 Balance 1100 820 Weight 67.132 kg Intake: Intake, IV Titration 1100 700 Amount Dextrose 5%-0.9% NaCl 1, 900 600 000 ml @ 75 mls/hr IV . [id number] [facility] Rx#:[id number] Piperacillin-Tazobactam 3 200 100 .375 gm In Sodium Chloride 0.9% 100 ml @ 25 mls/hr IVPB Q8HR PREM Rx# :[id number] Oral 120 Other: Voiding Method Toilet # Voids 1 - Constitutional General appearance: Present: cooperative, no acute distress - Gastrointestinal Gastrointestinal Comment(s): Soft, nontender, nondistended, no rebound, no guarding - Labs CBC & Chem 7: 10/13/20 06:19 10/13/20 06:19 Labs: Abnormal Lab Results - Last 24 Hours (Table) 10/12/20 10/12/20 10/13/20 Range/Units 16:53 20:52 06:19 WBC 13.3 H (3.8-10.6) k/uL Neutrophils # 10.4 H (1.3-7.7) k/uL Monocytes # 1.2 H (0-1.0) k/uL Potassium (3.5-5.5) mmol/L BUN (9.0-27.0) mg/dL Creatinine (0.6-1.5) mg/dL POC Glucose (mg/dL) 100 H 112 H (75-99) mg/dL Calcium (8.7-10.3) mg/dL 10/13/20 10/13/20 10/13/20 Range/Units 06:19 07:09 11:34 WBC (3.8-10.6) k/uL Neutrophils # (1.3-7.7) k/uL Monocytes # (0-1.0) k/uL Potassium 2.8 L (3.5-5.5) mmol/L BUN <5.0 L (9.0-27.0) mg/dL Creatinine 0.5 L (0.6-1.5) mg/dL POC Glucose (mg/dL) 103 H 106 H (75-99) mg/dL Calcium 8.1 L (8.7-10.3) mg/dL Microbiology - Last 24 Hours (Table) 10/12/20 10:37 Gram Stain - Preliminary Aspirate Body Fluid Culture - Preliminary 10/12/20 10:37 Anaerobic Culture - Preliminary Aspirate 10/07/20 16:15 Blood Culture - Preliminary Blood No Growth after 120 hours 10/07/20 16:39 Blood Culture - Preliminary Blood No Growth after 120 hours Assessment and Plan Plan: 60-year-old female status post IR drainage of abscess. Starting to have bowel movements. Will advance to full liquid diet. Continue IV antibiotics
[2020-10-13 17:01] LABS: Glucose,Whole Blood 88 mg/dL (75-99)
[2020-10-13 20:30] LABS: Glucose,Whole Blood 102 mg/dL (75-99)
[2020-10-13] MEDS: MORPHINE SULFATE 4 MG/ML SYRINGE IV PRN (20:59)
--- NOTE | 2020-10-13 21:42 | CONS ---
CONSULTATION DATE OF SERVICE: 10/13/2020 REASON FOR CONSULTATION: Antibiotic management. HISTORY OF PRESENT ILLNESS: The patient is a 60-year-old female presented to [facility] ER about a week ago on 10/07/2020 for evaluation of abdominal pain, constipation and nausea. The patient's symptoms have been going on for a few weeks before presentation to the hospital. The patient's pain has been mostly in the left lower abdominal area described to be more of a dull aching to sharp, intensity almost 7 to 8/10 and no radiation with associated cough. The patient had nausea but no vomiting. With these symptoms, the patient was evaluated by the ER physician. On arrival to the ER, the patient initially afebrile, subsequently did spike a fever of 101.5 degrees Fahrenheit. The patient did have a white count of 19.9. Patient did have an acute abdominal series followed by CT of abdomen and pelvis which was read as possible left-sided tuboovarian abscess, versus acute diverticulitis with adjacent abscess. The patient has been evaluated over the last week by [facility] and General Surgery. The patient did have a CT- guided drainage of an abscess completed yesterday. The patient has been treated with Zosyn. Infectious Disease was consulted last evening for further management of antibiotic therapy. REVIEW OF SYSTEMS: Positive points have been mentioned in HPI. Rest of the systems are negative. PAST MEDICAL HISTORY: Anxiety. PAST SURGICAL HISTORY: No major surgeries. SOCIAL HISTORY: Current everyday smoker. Did admit to drinking and marijuana use. FAMILY HISTORY: No pertinent findings. ALLERGIES: CODEINE, HYDROCODONE. MEDICATIONS: Include the patient is currently on Xanax, Pepcid, heparin, NovoLog, morphine sulfate, Narcan, Nicotine patch, Zosyn. PHYSICAL EXAMINATION: Blood pressure is 134/84, pulse of 80, temperature 99. She is 94% on room air. General description is a middle-aged female lying in bed in no distress. No tachypnea or accessory muscles of respiration use. HEENT: Examination shows no pallor or scleral icterus. Oral mucous membranes dry. NECK: Trachea central. No thyromegaly. LUNGS: Unlabored breathing, clear to auscultation anteriorly. HEART: S1, S2. Regular rate and rhythm. ABDOMEN: Soft, mildly tender in the left lower quadrant area. No guarding or rigidity. No organomegaly. EXTREMITIES: No edema of the feet. SKIN: No rash or mass palpable. NEUROLOGICAL: Patient awake, alert, oriented times three. Mood and affect normal. LABS: Hemoglobin is 13.5, white count 13.3, BUN of 5, creatinine 0.5. CT report mentioned above. DIAGNOSTIC IMPRESSION AND PLAN: Patient admitted to hospital with abdominal pain in this patient who did have evidence of sepsis with fever, elevated white count. Source likely acute diverticulitis with perforation and abscess and need to cover for enteric gram-negative with likely pathogen. PLAN: Patient to continue Zosyn 3.375 g q.8 hours to continue while waiting for the culture to finalize to determine discharge antibiotics. Thank you for this consultation. Will follow the patient along with you. MMODL / IJN: [id number] /
[2020-10-14] MEDS: POTASSIUM CHLORIDE ER 20 MEQ TAB.ER PO SCH ×2 (00:53→08:26)
[2020-10-14] MEDS: MORPHINE SULFATE 4 MG/ML SYRINGE IV PRN ×2 (00:56→22:51)
[2020-10-14] MEDS: ALPRAZolam 0.25 MG TAB PO PRN ×2 (00:56→17:19)
[2020-10-14 05:57] LABS: Basophils # (A) 0.1 k/uL (0-0.2); Basophils % (A) 1 %; Eosinophils # (A) 0.1 k/uL (0-0.7); Eosinophils % (A) 1 %; HCT 39.3 % (34.0-46.0); HGB 12.4 gm/dL (11.4-16.0); Lymphocytes # (A) 2.1 k/uL (1.0-4.8); Lymphocytes % (A) 20 %; MCH 30.8 pg (25.0-35.0); MCHC 31.6 g/dL (31.0-37.0); MCV 97.4 fL (80.0-100.0); Mean Platelet Volume 8.4; Monocytes # (A) 1.1 k/uL (0-1.0); Monocytes % (A) 10 %; Neutrophils # (A) 6.9 k/uL (1.3-7.7); Neutrophils % (A) 66 %; Platelet Count 201 k/uL (150-450); RBC 4.04 m/uL (3.80-5.40); RDW 13.3 % (11.5-15.5); WBC 10.5 k/uL (3.8-10.6)
[2020-10-14 06:18] LABS: Glucose,Whole Blood 71 mg/dL (75-99)
[2020-10-14 06:18] LABS: African American GFR (CKD) >90 (>60 ml/min/1.73 sqM); Anion Gap 1 mmol/L; Blood Urea Nitrogen <2 mg/dL (7-17); Calcium 7.6 mg/dL (8.4-10.2); Carbon Dioxide 31 mmol/L (22-30); Chloride 106 mmol/L (98-107); Glucose 74 mg/dL (74-99); Magnesium 1.9 mg/dL (1.6-2.3); Non-African American GFR(CKD) >90 (>60 ml/min/1.73 sqM); Potassium 3.6 mmol/L (3.5-5.1); Sodium 138 mmol/L (137-145)
[2020-10-14 07:14] LABS: Glucose,Whole Blood 95 mg/dL (75-99)
[2020-10-14] MEDS: INSULIN ASPART (NovoLOG) 100 UNIT/ML VIAL SQ SCH ×4 (08:10→23:44)
[2020-10-14] MEDS: PIPERACILLIN-TAZOBACTAM 3.375 GM in SODIUM CHLORIDE 0.9% 100 ML IVPB SCH ×3 (08:25→23:43)
[2020-10-14] MEDS: FAMOTIDINE 20 MG/2 ML VIAL IV SCH (08:26)
[2020-10-14] MEDS: HEPARIN SODIUM,PORCINE/PF 5,000 UNIT/0.5 ML SYRINGE SQ SCH ×2 (08:26→20:34)
[2020-10-14] MEDS: NICOTINE 21MG/24HR PATCH TRANSDERM SCH (08:30)
[2020-10-14 11:57] LABS: Glucose,Whole Blood 72 mg/dL (75-99)
--- NOTE | 2020-10-14 15:01 | P.PN ---
Subjective Progress Note Date: 10/14/20 This is a 60-year-old female who was recently admitted with abdominal and back pain that is radiating to the left side anteriorly and has been ongoing for 2 weeks and getting progressively worse. She is being closely monitored and also being followed by surgery recommending interventional radiology guided possible drainage abscess of the abdomen today. Patient was brought down for the possibility of this drainage and patient was hypertensive and the procedure was aborted. Continues on IV antibiotics and will continue at this time. Patient is on IV Zosyn with Dr. veronica clifford. White blood count today is 15.9 with hemoglobin of 13.9, sodium is 144 with a potassium of 3.5 and current creatinine is 0.6. Magnesium is 1.9. Patient is on gentle IV fluids in the form of dextrose and normal saline as she was having some low blood sugar readings and has been nothing by mouth and will continue with Accu-Cheks and monitor closely. Will add hydralazine as needed for blood pressure control along with Norvasc 10 mg daily with attempts at possibly repeating IR guarded drainage abscess in the morning. 10/12/2020 Patient is seen and evaluated and follow-up this morning continues to have some generalized abdominal discomfort. She was started on amlodipine and tolerated and blood pressure is more manageable and patient will undergo IR guided drainage of the abscess. Patient continues on IV antibiotics and infectious disease has been consulted and appreciate input on determining discharge antibiotics. Cultures were obtained during the drainage which was reported as purulent and awaiting for culture finalization to determine antibiotics upon discharge. Patient will be started on clear liquids and monitor closely for tolerance. No reports of chest pain or palpitations. Patient denies shortness of breath. Patient is afebrile. Blood count today is elevated at 17.3 and hemoglobin is stable at 14.7, sodium is 141 and potassium is 3.1 and will replace and repeat a.m. labs. 10/13/2020 Patient is seen in follow-up this morning and potassium was low found to be 2.8 and will replace per protocol and repeat labs and monitor closely. White count trending down at 13.3 and hemoglobin is stable at 13.0. Infectious disease following and awaiting for culture finalization from the abscess drainage to determine discharge antibiotics and the need for possible IV antibiotic therapy in the outpatient setting. Surgery also following closely. Patient continues on IV Zosyn and will continue at this time while waiting for cultures. Blood cultures remain negative. Patient having intermittent low-grade temperatures of 99 and will continue to monitor closely. Blood pressure being closely monitored and patient was having some lower readings and will discontinue Norvasc and continue to monitor closely. Patient does not normally take any medications for hypertension. Patient continues on clear liquids and will discuss with surgery about possibly advancing slowly as tolerated. 10/14/2020 Patient is seen and evaluated this morning and is being closely monitored. Preliminary culture showing gram-negative bacilli and patient is maintained on Zosyn and will continue at this time. Infectious disease is following. Surgery also following. White blood count is 10.5 hemoglobin is stable at 12.4, sodium is 138 with a potassium of 3.6 and current magnesium is 1.9. Have added 20 Meq daily of potassium. Will repeat a.m. labs and monitor closely. Patient was tolerating clear liquids and being advanced as tolerated per surgery recommendations. No reports of nausea or vomiting noted. Abdominal discomfort has improved. Patient is afebrile Review of systems: Constitutional: Reports of fatigue, no reports of fever, no reports of chills Cardiovascular: No reports of chest pain or palpitations Respiratory: No reports of shortness of breath or cough GI: No reports of nausea, vomiting, or diarrhea : No reports of dysuria or retention Neurovascular: No reports of weakness or numbness All medications have been reviewed Objective - Vital Signs Vital signs: Vital Signs Temp 97.7 F 10/14/20 05:08 Pulse 70 10/14/20 05:08 Resp 18 10/14/20 05:08 BP 112/74 10/14/20 05:08 Pulse Ox 92 L 10/14/20 05:08 Intake & Output 10/13/20 10/14/20 10/14/20 18:59 06:59 18:59 Intake Total 1420 1000 Balance 1420 1000 Intake: Intake, IV Titration 700 1000 Amount Dextrose 5%-0.9% NaCl 1, 600 900 000 ml @ 75 mls/hr IV . [id number] [facility] Rx#:[id number] Piperacillin-Tazobactam 3 100 100 .375 gm In Sodium Chloride 0.9% 100 ml @ 25 mls/hr IVPB Q8HR [facility] Rx# :[id number] Oral 720 Other: Voiding Method Toilet Toilet # Voids 4 1 - Exam GENERAL: The patient is alert and oriented x3, not in any acute distress. Well developed, well nourished. Temp is 97.7F, pulse is 70, respirations are 18, blood pressure is 112/74, oxygen saturation is 95% on room air. HEENT: Pupils are round and equally reacting to light. EOMI. No scleral icterus. No conjunctival pallor. Normocephalic, atraumatic. No pharyngeal erythema. No thyromegaly. CARDIOVASCULAR: S1 and S2 muffled PULMONARY: Diminished breath sounds bilaterally with no wheezing or rhonchi noted ABDOMEN: Soft, mildly tender, nondistended, normoactive bowel sounds. No palpable organomegaly. MUSCULOSKELETAL: No joint swelling or deformity. EXTREMITIES: No cyanosis, clubbing, or pedal edema. NEUROLOGICAL: Gross neurological examination did not reveal any focal deficits. SKIN: No rashes. no petechiae. - Labs CBC & Chem 7: 10/14/20 05:05 10/14/20 05:05 Labs: Abnormal Lab Results - Last 24 Hours (Table) 10/13/20 10/13/20 10/13/20 Range/Units 06:19 11:34 18:34 Monocytes # (0-1.0) k/uL Potassium 2.8 L 3.2 L (3.5-5.5) mmol/L Carbon Dioxide (22-30) mmol/L BUN <5.0 L (9.0-27.0) mg/dL Creatinine 0.5 L (0.6-1.5) mg/dL POC Glucose (mg/dL) 106 H (75-99) mg/dL Calcium 8.1 L (8.7-10.3) mg/dL 10/13/20 10/14/20 10/14/20 Range/Units 20:29 05:05 05:05 Monocytes # 1.1 H (0-1.0) k/uL Potassium (3.5-5.5) mmol/L Carbon Dioxide 31 H (22-30) mmol/L BUN <2 L (9.0-27.0) mg/dL Creatinine (0.6-1.5) mg/dL POC Glucose (mg/dL) 102 H (75-99) mg/dL Calcium 7.6 L (8.7-10.3) mg/dL 10/14/20 Range/Units 06:17 Monocytes # (0-1.0) k/uL Potassium (3.5-5.5) mmol/L Carbon Dioxide (22-30) mmol/L BUN (9.0-27.0) mg/dL Creatinine (0.6-1.5) mg/dL POC Glucose (mg/dL) 71 L (75-99) mg/dL Calcium (8.7-10.3) mg/dL Microbiology - Last 24 Hours (Table) 10/12/20 10:37 Gram Stain - Preliminary Aspirate Body Fluid Culture - Preliminary Gram Neg Bacilli 10/07/20 16:39 Blood Culture - Final Blood No Growth after 144 hours 10/07/20 16:15 Blood Culture - Final Blood No Growth after 144 hours Assessment and Plan Assessment: posterior cul-de-sac abscess, adjacent to the uterus measuring 5.8 x 2.4 x 3.7 cm. Most likely related to acute diverticulitis. Less likely tubo-ovarian abscess Status post IR guided drainage of abscess with cultures growing gram-negative bacilli Continued ongoing nicotine dependence Hypokalemia Hypertension Leukocytosis DVT prophylaxis GI prophylaxis Full code Recommendations and discussion: Recommend continuing current medications, management, and symptomatic treatment. Surgery Dr. Andres/ Cristina following and patient underwent IR guided abscess drainage and cultures were obtained and pending at this time. Preliminary showing gram-negative bacilli and awaiting for finalization. Patient continues on IV antibiotic some form of Zosyn and will continue at this time. Infectious disease following and appreciate recommendations on discharge antibiotics. Will await culture finalization as patient may require IV antibiotic therapy in the outpatient setting. Patient tolerated clear liquids and advancing slowly to full liquids per surgery recommendations. Recommend continue monitoring Accu- Cheks before meals and at bedtime and will continue sliding scale as needed. White blood count trending down at 10.5 , potassium has been replaced and is 3.6 today and will continue with a daily supplement and repeat a.m. labs. Due to multiple complex medical issues, prognosis is guarded. Further recommendations to follow. Discussed with case management about insurance coverage for possible IV antibiotic therapy in the outpatient setting. Will discuss with infectious disease about discharge planning process. Possible discharge in 24-48 hours.
--- NOTE | 2020-10-14 15:12 | CDI ---
Documentation Clarification Form Date: 10/14/2020 03:00:37 PM From: Lashae HarperPEGGY galloway, CCDS Admit Date: 10/07/2020 03:59:00 PM Patient Name: Aracely Buitrago Visit Number: [id number] Discharge Date: ATTENTION: The Clinical Documentation Specialists (CDI) and [facility] Coding Staff appreciate your assistance in clarifying documentation. Please respond to the clarification below the line at the bottom and electronically sign. The CDI & [facility] Coding staff will review the response and follow-up if needed. Please note: Queries are made part of the Legal Health Record. If you have any questions, please contact the author of this message via ITS. Dr. Jose Courtney: The following is documented in the 10/13 Infectious Disease Consult: Patient admitted to hospital with abdominal pain in this patient who did have evidence of sepsis with fever, elevated white count. Additional clarification regarding Sepsis is requested. History/Risk Factors per the 10/07 H/P: Anxiety, Smoker. Clinical Indicators: Presented to the ED via EMS on 10/07 with Abdominal Pain, Constipation & Nausea. ED Clinical Impression: Diverticulitis of intestine with abscess, Leukocytosis, Nausea & Vomiting. 10/07 VS: T 98.0, P 83, R 18, BP 167/104, PO 97 RA 10/07 VS: T 98 - 101.5, P 112, R 18, BP 97/69, PO 94 RA 10/07 LAB: WBC 19.9, Hgb 17.3, Hct 49.8, Neut 18.4, Lymph 0.4, Na 134, K 5.9, Gluc 128, Lipase 12, Lactic Acid 1.9 10/07 UA: Sp Gr >1.050, 1+ ketones 10/08 Stool occult blood negative 10/07 COVID negative 10/07 Blood Cultures x2 (final): Negative after 144 hrs. 10/07 Acute Abdomen w/CXR: Nonspecific abdomen with no evidence of obstruction, no acute intrathoracic process. 10/07 CT Abdomen/Pelvis: Hypodense lesions adjacent sigmoid colon felt to be related to left tubo-ovarian abscess. Acute diverticulitis with small adjacent abscesses should be considered within the differential. 10/12 CT guided abscess drainage, Left pelvic fluid. 10/12 Gram Stain Body Fluid Culture (preliminary): Gram Neg Bacilli Treatment 10/07: IV Morphine 4mg x3, IV Zofran, IV NaCl 1,000 mls @ 999 mls/hr q1H, IV Toradol 15 mg q6H, IV Zofran, IV Rocephin, IV Flagyl. In your professional opinion, please clarify if these findings signify one of the following conditions: [ ] Sepsis POA [ ] Sepsis, Not POA [ ] Sepsis ruled out [ ] Other, please specify [ ] Unable to determine (Template Last Reviewed: June 2020) Sepsis POA MTDD
--- NOTE | 2020-10-14 15:51 | P.PN ---
Subjective Progress Note Date: 10/14/20 Patient is feeling well, no complaints, tolerating diet. Objective - Vital Signs Vital signs: Vital Signs Temp 98 F 10/14/20 11:35 Pulse 74 10/14/20 11:35 Resp 18 10/14/20 11:35 BP 126/81 10/14/20 11:35 Pulse Ox 95 10/14/20 11:35 Intake & Output 10/13/20 10/14/20 10/14/20 18:59 06:59 18:59 Intake Total 1420 1000 Balance 1420 1000 Weight 67.132 kg Intake: Intake, IV Titration 700 1000 Amount Dextrose 5%-0.9% NaCl 1, 600 900 000 ml @ 75 mls/hr IV . [id number] [facility] Rx#:[id number] Piperacillin-Tazobactam 3 100 100 .375 gm In Sodium Chloride 0.9% 100 ml @ 25 mls/hr IVPB Q8HR [facility] Rx# :[id number] Oral 720 Other: Voiding Method Toilet Toilet # Voids 4 1 - Constitutional General appearance: Present: cooperative - Cardiovascular Rhythm: regular - Gastrointestinal Gastrointestinal Comment(s): S/NT/ND - Labs CBC & Chem 7: 10/14/20 05:05 10/14/20 05:05 Labs: Abnormal Lab Results - Last 24 Hours (Table) 10/13/20 10/13/20 10/14/20 Range/Units 18:34 20:29 05:05 Monocytes # 1.1 H (0-1.0) k/uL Potassium 3.2 L (3.5-5.1) mmol/L Carbon Dioxide (22-30) mmol/L BUN (7-17) mg/dL POC Glucose (mg/dL) 102 H (75-99) mg/dL Calcium (8.4-10.2) mg/dL 10/14/20 10/14/20 10/14/20 Range/Units 05:05 06:17 11:54 Monocytes # (0-1.0) k/uL Potassium (3.5-5.1) mmol/L Carbon Dioxide 31 H (22-30) mmol/L BUN <2 L (7-17) mg/dL POC Glucose (mg/dL) 71 L 72 L (75-99) mg/dL Calcium 7.6 L (8.4-10.2) mg/dL Microbiology - Last 24 Hours (Table) 10/12/20 10:37 Gram Stain - Preliminary Aspirate Body Fluid Culture - Preliminary Gram Neg Bacilli 10/07/20 16:39 Blood Culture - Final Blood No Growth after 144 hours 10/07/20 16:15 Blood Culture - Final Blood No Growth after 144 hours Assessment and Plan Assessment: Abscess/complex fluid collection in pelvis Plan: ABX per ID Surgically stable Advance diet to soft as tolerated. Patient will need to follow up with me in 6-8 weeks after resolution of infection/inflammation for colonoscopy. This was discussed with the patient
[2020-10-14 17:29] LABS: Glucose,Whole Blood 101 mg/dL (75-99)
[2020-10-14 20:08] LABS: Glucose,Whole Blood 120 mg/dL (75-99)
[2020-10-14] MEDS: FAMOTIDINE 20 MG TAB PO SCH (20:34)
--- NOTE | 2020-10-14 23:46 | PN ---
PROGRESS NOTE DATE OF SERVICE: 10/14/2020 REASON FOR FOLLOWUP: Abdominal abscess. INTERVAL HISTORY: Patient is afebrile. The patient's abdominal pain is currently controlled. The patient denies having any chest pain. No shortness of breath or cough. No nausea, vomiting or diarrhea. PHYSICAL EXAMINATION: Blood pressure 107/73 with a pulse of 83, temperature 98.2. General description: The patient is a middle aged female lying in bed in no distress. Respiratory system: Unlabored breathing, clear to auscultation anteriorly. Heart S1, S2. Regular rate. ABDOMEN: Soft, nontender. LABS: Hemoglobin is 12.7, white count 5, BUN of 2, creatinine 0.53. DIAGNOSTIC IMPRESSION AND PLAN: Patient with intraabdominal abscess from perforated diverticulitis, status post CT- guided drainage. The patient white count has normalized. ID sensitivity on the gram- negative is pending to determine her discharge antibiotics. Continue with Zosyn continue supportive care. MMODL / IJN: [id number] /
[2020-10-15 07:19] LABS: Glucose,Whole Blood 75 mg/dL (75-99)
[2020-10-15] MEDS: INSULIN ASPART (NovoLOG) 100 UNIT/ML VIAL SQ SCH ×4 (07:45→20:28)
[2020-10-15] MEDS: PIPERACILLIN-TAZOBACTAM 3.375 GM in SODIUM CHLORIDE 0.9% 100 ML IVPB SCH ×2 (08:08→15:42)
[2020-10-15] MEDS: POTASSIUM CHLORIDE ER 20 MEQ TAB.ER PO SCH (08:08)
[2020-10-15] MEDS: NICOTINE 21MG/24HR PATCH TRANSDERM SCH (08:08)
[2020-10-15] MEDS: FAMOTIDINE 20 MG TAB PO SCH ×2 (08:08→20:28)
[2020-10-15] MEDS: HEPARIN SODIUM,PORCINE/PF 5,000 UNIT/0.5 ML SYRINGE SQ SCH ×2 (08:08→20:28)
[2020-10-15 11:25] LABS: Glucose,Whole Blood 102 mg/dL (75-99)
--- NOTE | 2020-10-15 11:42 | P.PN ---
Subjective Progress Note Date: 10/15/20 Patient is feeling well, no complaints, tolerating diet. Objective - Vital Signs Vital signs: Vital Signs Temp 97.7 F 10/15/20 04:58 Pulse 118 H 10/15/20 08:00 Resp 16 10/15/20 08:00 BP 110/74 10/15/20 04:58 Pulse Ox 94 L 10/15/20 04:58 Intake & Output 10/14/20 10/15/20 10/15/20 18:59 06:59 18:59 Intake Total 200 Balance 200 Weight 67.132 kg Intake: Intake, IV Titration 200 Amount Piperacillin-Tazobactam 3 200 .375 gm In Sodium Chloride 0.9% 100 ml @ 25 mls/hr IVPB Q8HR [facility] Rx# :[id number] Other: Voiding Method Toilet Toilet # Voids 3 - Constitutional General appearance: Present: cooperative - Cardiovascular Rhythm: regular - Gastrointestinal Gastrointestinal Comment(s): S/NT/ND - Labs CBC & Chem 7: 10/14/20 05:05 10/14/20 05:05 Labs: Abnormal Lab Results - Last 24 Hours (Table) 10/14/20 10/14/20 10/14/20 Range/Units 11:54 17:27 20:06 POC Glucose (mg/dL) 72 L 101 H 120 H (75-99) mg/dL 10/15/20 Range/Units 11:24 POC Glucose (mg/dL) 102 H (75-99) mg/dL Assessment and Plan Assessment: Abscess/complex fluid collection in pelvis Plan: ABX per ID Surgically stable Diet as tolerated Patient will need to follow up with me in 6-8 weeks after resolution of infection/inflammation for colonoscopy. This was discussed with the patient
--- NOTE | 2020-10-15 13:57 | P.PN ---
Subjective Progress Note Date: 10/15/20 This is a 60-year-old female who was recently admitted with abdominal and back pain that is radiating to the left side anteriorly and has been ongoing for 2 weeks and getting progressively worse. She is being closely monitored and also being followed by surgery recommending interventional radiology guided possible drainage abscess of the abdomen today. Patient was brought down for the possibility of this drainage and patient was hypertensive and the procedure was aborted. Continues on IV antibiotics and will continue at this time. Patient is on IV Zosyn with Dr. veronica clifford. White blood count today is 15.9 with hemoglobin of 13.9, sodium is 144 with a potassium of 3.5 and current creatinine is 0.6. Magnesium is 1.9. Patient is on gentle IV fluids in the form of dextrose and normal saline as she was having some low blood sugar readings and has been nothing by mouth and will continue with Accu-Cheks and monitor closely. Will add hydralazine as needed for blood pressure control along with Norvasc 10 mg daily with attempts at possibly repeating IR guarded drainage abscess in the morning. 10/12/2020 Patient is seen and evaluated and follow-up this morning continues to have some generalized abdominal discomfort. She was started on amlodipine and tolerated and blood pressure is more manageable and patient will undergo IR guided drainage of the abscess. Patient continues on IV antibiotics and infectious disease has been consulted and appreciate input on determining discharge antibiotics. Cultures were obtained during the drainage which was reported as purulent and awaiting for culture finalization to determine antibiotics upon discharge. Patient will be started on clear liquids and monitor closely for tolerance. No reports of chest pain or palpitations. Patient denies shortness of breath. Patient is afebrile. Blood count today is elevated at 17.3 and hemoglobin is stable at 14.7, sodium is 141 and potassium is 3.1 and will replace and repeat a.m. labs. 10/13/2020 Patient is seen in follow-up this morning and potassium was low found to be 2.8 and will replace per protocol and repeat labs and monitor closely. White count trending down at 13.3 and hemoglobin is stable at 13.0. Infectious disease following and awaiting for culture finalization from the abscess drainage to determine discharge antibiotics and the need for possible IV antibiotic therapy in the outpatient setting. Surgery also following closely. Patient continues on IV Zosyn and will continue at this time while waiting for cultures. Blood cultures remain negative. Patient having intermittent low-grade temperatures of 99 and will continue to monitor closely. Blood pressure being closely monitored and patient was having some lower readings and will discontinue Norvasc and continue to monitor closely. Patient does not normally take any medications for hypertension. Patient continues on clear liquids and will discuss with surgery about possibly advancing slowly as tolerated. 10/14/2020 Patient is seen and evaluated this morning and is being closely monitored. Preliminary culture showing gram-negative bacilli and patient is maintained on Zosyn and will continue at this time. Infectious disease is following. Surgery also following. White blood count is 10.5 hemoglobin is stable at 12.4, sodium is 138 with a potassium of 3.6 and current magnesium is 1.9. Have added 20 Meq daily of potassium. Will repeat a.m. labs and monitor closely. Patient was tolerating clear liquids and being advanced as tolerated per surgery recommendations. No reports of nausea or vomiting noted. Abdominal discomfort has improved. Patient is afebrile 10/15/2020 Patient is seen and evaluated in follow-up continues to wait for diverticular abscess aspiration cultures to finalized. Infectious disease is following. Patient is maintained on IV Zosyn and will continue. Preliminary culture showing Serratia Marcescens and awaiting for the rest along with anaerobic culture to finalized. Patient will continue on IV Zosyn for now. Patient's abdominal pain is minimal she states and is passing gas and having bowel movements and tolerating diet with no problems. Patient continues on IV morphine and will add Ultram as needed as the patient would like to start with oral as she will be going home soon. Patient states that the pain becomes slightly more intense at night. Instructed the patient to increase activity as tolerated and continue to encourage oral intake. She remains afebrile. Surgery also following and clear from their standpoint once discharge antibiotics are determined. She will need outpatient follow-up for colonoscopy with Dr. andres as discussed in the next 6-8 weeks. Review of systems: Constitutional: Reports of fatigue, no reports of fever, no reports of chills Cardiovascular: No reports of chest pain or palpitations Respiratory: No reports of shortness of breath or cough GI: No reports of nausea, vomiting, or diarrhea : No reports of dysuria or retention Neurovascular: No reports of weakness or numbness All medications have been reviewed Objective - Vital Signs Vital signs: Vital Signs Temp 98.2 F 10/15/20 12:02 Pulse 87 10/15/20 12:02 Resp 17 10/15/20 12:02 BP 119/82 10/15/20 12:02 Pulse Ox 93 L 10/15/20 12:02 Intake & Output 10/14/20 10/15/20 10/15/20 18:59 06:59 18:59 Intake Total 200 Balance 200 Weight 67.132 kg Intake: Intake, IV Titration 200 Amount Piperacillin-Tazobactam 3 200 .375 gm In Sodium Chloride 0.9% 100 ml @ 25 mls/hr IVPB Q8HR [facility] Rx# :[id number] Other: Voiding Method Toilet Toilet # Voids 3 - Exam GENERAL: The patient is alert and oriented x3, not in any acute distress. Well developed, well nourished. HEENT: Pupils are round and equally reacting to light. EOMI. No scleral icterus. No conjunctival pallor. Normocephalic, atraumatic. No pharyngeal erythema. No thyromegaly. CARDIOVASCULAR: S1 and S2 muffled PULMONARY: Diminished breath sounds bilaterally with no wheezing or rhonchi noted ABDOMEN: Soft, mildly tender, nondistended, normoactive bowel sounds. No palpable organomegaly. MUSCULOSKELETAL: No joint swelling or deformity. EXTREMITIES: No cyanosis, clubbing, or pedal edema. NEUROLOGICAL: Gross neurological examination did not reveal any focal deficits. SKIN: No rashes. no petechiae. - Labs CBC & Chem 7: 10/14/20 05:05 10/14/20 05:05 Labs: Abnormal Lab Results - Last 24 Hours (Table) 10/14/20 10/14/20 10/15/20 Range/Units 17:27 20:06 11:24 POC Glucose (mg/dL) 101 H 120 H 102 H (75-99) mg/dL Microbiology - Last 24 Hours (Table) 10/12/20 10:37 Gram Stain - Preliminary Aspirate Body Fluid Culture - Preliminary Serratia marcescens Assessment and Plan Assessment: posterior cul-de-sac abscess, adjacent to the uterus measuring 5.8 x 2.4 x 3.7 cm. Most likely related to acute diverticulitis. Less likely tubo-ovarian abscess Status post IR guided drainage of abscess with cultures growing gram-negative bacilli Continued ongoing nicotine dependence Hypokalemia Hypertension, resolved Leukocytosis, resolved DVT prophylaxis GI prophylaxis Full code Recommendations and discussion: Recommend continuing current medications, management, and symptomatic treatment. Surgery Dr. Andres/ Cristina following and patient underwent IR guided abscess drainage and cultures were obtained and preliminary showing Serratia marcescens with cultures to finalize. Patient continues on IV antibiotic in the form of Zosyn and will continue at this time. Infectious disease following and appreciate recommendations on discharge antibiotics. Will await culture finalization as patient may require IV antibiotic therapy in the outpatient setting. Hopeful for oral antibiotics as there are some sensitivities to the first culture and discussed with infectious disease and will await for finalization for discharge antibiotics. This was also discussed with the patient. Patient tolerated clear liquids and advancing slowly to full liquids per surgery recommendations. Patient continues to tolerate diet and will increase to low fiber and also continue with oral supplements twice daily with meals. Recommend continue monitoring Accu-Cheks before meals and at bedtime and will continue sliding scale as needed. Due to multiple complex medical issues, prognosis is guarded. Further recommendations to follow. Discussed with case management about insurance coverage for possible IV antibiotic therapy in the outpatient setting. Will discuss with infectious disease about discharge planning process once cultures are available. Due to the high co-pays patient has, hoping for oral antibiotics on discharge. Patient has IV morphine as needed for pain and requesting something a little stronger than Tylenol to go home with and will add Ultram. Possible discharge in 24 hours.
[2020-10-15] MEDS: ALPRAZolam 0.25 MG TAB PO PRN (14:20)
[2020-10-15 17:27] LABS: Glucose,Whole Blood 96 mg/dL (75-99)
[2020-10-15] MEDS: CEFEPIME 2 GM in SODIUM CHLORIDE 0.9% 100 ML IVPB SCH ×2 (18:24→23:45)
[2020-10-15] MEDS: metroNIDAZOLE 500 MG TAB PO SCH ×2 (18:25→21:24)
--- NOTE | 2020-10-15 18:46 | PN ---
PROGRESS NOTE DATE OF SERVICE: 10/15/2020 REASON FOR FOLLOWUP: Intraabdominal abscess. INTERVAL HISTORY: Patient is afebrile. The patient is breathing comfortably. The patient denies having any chest pain or shortness of breath or cough. Abdominal pain has improved. No vomiting or diarrhea. PHYSICAL EXAMINATION: Blood pressure 119/80 with a pulse of 87, temperature 98.0. She is 93% on room air. General description: The patient is a middle-aged female lying in bed in no distress. Respiratory system: Unlabored breathing, clear to auscultation anteriorly. Heart: S1-S2 regular rate and rhythm. ABDOMEN: Soft, no tenderness. EXTREMITIES: No edema of the feet. LABS: No new labs have been obtained today, abdominal abscess showing Serratia marcescens. DIAGNOSTIC IMPRESSION AND PLAN: Patient with intraabdominal abscess that has been finalized with Serratia. Interval cultures currently pending. Antibiotic will be adjusted to cefepime, and oral Flagyl and monitor clinical course closely. MMODL / IJN: [id number] /
[2020-10-15 19:37] LABS: Glucose,Whole Blood 138 mg/dL (75-99)
[2020-10-15] MEDS: MORPHINE SULFATE 4 MG/ML SYRINGE IV PRN (22:48)
[2020-10-16] MEDS: ALPRAZolam 0.25 MG TAB PO PRN ×2 (04:12→20:13)
[2020-10-16] MEDS: traMADol 50 MG TAB PO PRN ×2 (04:14→22:20)
[2020-10-16 05:58] LABS: Basophils # (A) 0.1 k/uL (0-0.2); Basophils % (A) 1 %; Eosinophils # (A) 0.2 k/uL (0-0.7); Eosinophils % (A) 2 %; HGB 13.8 gm/dL (11.4-16.0); Lymphocytes # (A) 1.8 k/uL (1.0-4.8); Lymphocytes % (A) 16 %; MCH 32.3 pg (25.0-35.0); MCHC 32.9 g/dL (31.0-37.0); MCV 97.9 fL (80.0-100.0); Mean Platelet Volume 8.1; Monocytes # (A) 0.9 k/uL (0-1.0); Monocytes % (A) 8 %; Neutrophils # (A) 8.2 k/uL (1.3-7.7); Neutrophils % (A) 72 %; Platelet Count 277 k/uL (150-450); RBC 4.29 m/uL (3.80-5.40); RDW 13.1 % (11.5-15.5); WBC 11.4 k/uL (3.8-10.6)
[2020-10-16 06:18] LABS: African American GFR (CKD) >90 (>60 ml/min/1.73 sqM); Anion Gap 5 mmol/L; Blood Urea Nitrogen 5 mg/dL (7-17); Calcium 8.7 mg/dL (8.4-10.2); Carbon Dioxide 30 mmol/L (22-30); Chloride 102 mmol/L (98-107); Glucose 75 mg/dL (74-99); Non-African American GFR(CKD) >90 (>60 ml/min/1.73 sqM); Potassium 4.5 mmol/L (3.5-5.1); Sodium 137 mmol/L (137-145)
[2020-10-16 07:28] LABS: Glucose,Whole Blood 88 mg/dL (75-99)
[2020-10-16] MEDS: INSULIN ASPART (NovoLOG) 100 UNIT/ML VIAL SQ SCH ×4 (07:49→22:18)
[2020-10-16] MEDS: POTASSIUM CHLORIDE ER 20 MEQ TAB.ER PO SCH (08:06)
[2020-10-16] MEDS: FAMOTIDINE 20 MG TAB PO SCH ×2 (08:06→20:13)
[2020-10-16] MEDS: NICOTINE 21MG/24HR PATCH TRANSDERM SCH (08:06)
[2020-10-16] MEDS: HEPARIN SODIUM,PORCINE/PF 5,000 UNIT/0.5 ML SYRINGE SQ SCH ×2 (08:06→20:14)
[2020-10-16] MEDS: CEFEPIME 2 GM in SODIUM CHLORIDE 0.9% 100 ML IVPB SCH ×3 (08:07→23:12)
[2020-10-16] MEDS: metroNIDAZOLE 500 MG TAB PO SCH ×3 (08:07→22:18)
[2020-10-16] MEDS: ONDANSETRON 4 MG/2 ML VIAL IVP PRN (08:18)
[2020-10-16 12:05] LABS: Glucose,Whole Blood 119 mg/dL (75-99)
--- NOTE | 2020-10-16 16:31 | P.PN ---
Subjective Progress Note Date: 10/16/20 Ms. Buitrago is a 60-year-old female with past medical history of asthma, GERD, hypertension, hyperlipidemia, anxiety and depression coming into the hospital with a chief complaint of abdominal and back pain. Patient had CAT scan of the abdomen showing left to poor weight gain abscess and acute diverticulitis with small skin abscess. Eventually patient underwent IUI guided drainage of the abscess and the cultures showing Thomas MR since this. Patient's blood cultures have been negative. Patient has been continued on IV Zosyn as per LINDA Pulido's recommendations. On 10/16/2020 - patient is seen and examined at bedside. Patient states that he does not have abdominal pain anymore. She denies having any chest pain or palpitations. No cough or difficulty in breathing. Denies having any fevers c hills or rigors. No dysuria or hematuria. Patient has been tolerating diet and had a bowel movement yesterday. On reviewing the vitals temperature of 98.4, heart rate 91, respiratory rate 18, blood pressure 120/81 saturating at 93% on room air. On reviewing the patient's labs white count of 11.4, hemoglobin 13.8, platelets 277. Sodium 137, potassium 4.3, chloride 102, bicarb 30, BUN 5 creatinine 0.64. Patient's antibiotics have been changed to cefepime and Flagyl by ID yesterday. Active Medications Alprazolam (Alprazolam 0.25 Mg Tab) 0.25 mg PO BID PRN PRN Reason: Anxiety Last Admin: 10/16/20 04:12 Dose: 0.25 mg Documented by: Dextrose/Water (Dextrose 50% Syringe 50 Ml) 50 ml IVP ONCE PRN PRN Reason: Blood Sugar - Low Famotidine (Famotidine 20 Mg Tab) 20 mg PO Q12HR [facility] Last Admin: 10/16/20 08:06 Dose: 20 mg Documented by: Heparin Sodium (Porcine) (Heparin Sodium,Porcine/Pf 5,000 Unit/0.5 Ml Syringe) 5,000 unit SQ Q12HR [facility] Last Admin: 10/16/20 08:06 Dose: 5,000 unit Documented by: Cefepime HCl 2 gm/ Sodium (Chloride) 100 mls @ 25 mls/hr IVPB Q8HR [facility] Last Admin: 10/16/20 15:40 Dose: 25 mls/hr Documented by: Insulin Aspart (Insulin Aspart (Novolog) 100 Unit/Ml Vial) 0 unit SQ Q6HR [facility]; Protocol Last Admin: 10/16/20 13:12 Dose: Not Given Documented by: Metronidazole (Metronidazole 500 Mg Tab) 500 mg PO TID [facility] Last Admin: 10/16/20 15:40 Dose: 500 mg Documented by: Miscellaneous Information (Potassium Replacement Protocol 1 Each Misc) 1 each MISCELLANE DAILY PRN; Protocol PRN Reason: Per Protocol Morphine Sulfate (Morphine Sulfate 4 Mg/Ml Syringe) 4 mg IV Q4HR PRN PRN Reason: Severe Pain Last Admin: 10/15/20 22:48 Dose: 4 mg Documented by: Naloxone HCl (Naloxone 0.4 Mg/Ml 1 Ml Vial) 0.2 mg IV Q2M PRN PRN Reason: Opioid Reversal Nicotine (Nicotine 21mg/24hr Patch) 1 patch TRANSDERM DAILY [facility] Last Admin: 10/16/20 08:06 Dose: 1 patch Documented by: Ondansetron HCl (Ondansetron 4 Mg/2 Ml Vial) 4 mg IVP Q8HR PRN PRN Reason: Nausea And Vomiting Last Admin: 10/16/20 08:18 Dose: 4 mg Documented by: Potassium Chloride (Potassium Chloride Er 20 Meq Tab.Er) 20 meq PO DAILY [facility] Last Admin: 10/16/20 08:06 Dose: 20 meq Documented by: Tramadol HCl (Tramadol 50 Mg Tab) 50 mg PO TID PRN PRN Reason: Pain Last Admin: 10/16/20 04:14 Dose: 50 mg Documented by: Objective - Vital Signs Vital signs: Vital Signs Temp 97.6 F 10/16/20 04:33 Pulse 76 10/16/20 04:33 Resp 16 10/16/20 04:33 BP 119/83 10/16/20 04:33 Pulse Ox 93 L 10/16/20 04:33 Intake & Output 10/15/20 10/16/20 10/16/20 18:59 06:59 18:59 Intake Total 700 Balance 700 Intake: Intake, IV Titration 100 Amount Cefepime 2 gm In Sodium 100 Chloride 0.9% 100 ml @ 25 mls/hr IVPB Q8HR [facility] Rx# :[id number] Oral 600 Other: Voiding Method Toilet Toilet # Voids 1 1 - Exam GENERAL: The patient is alert and oriented x3, not in any acute distress. Well developed, well nourished. HEENT: Pupils are round and equally reacting to light. EOMI. No scleral icterus. No conjunctival pallor. Normocephalic, atraumatic. . CARDIOVASCULAR: S1 and S2 muffled PULMONARY: Diminished breath sounds bilaterally with no wheezing or rhonchi noted ABDOMEN: Soft, mildly tender, nondistended, normoactive bowel sounds. No palpable organomegaly. MUSCULOSKELETAL: No joint swelling or deformity. EXTREMITIES: No cyanosis, clubbing, or pedal edema. NEUROLOGICAL: Gross neurological examination did not reveal any focal deficits. SKIN: No rashes. no petechiae. - Labs CBC & Chem 7: 10/16/20 04:45 10/16/20 04:45 Labs: Abnormal Lab Results - Last 24 Hours (Table) 10/15/20 10/15/20 10/16/20 Range/Units 11:24 19:36 04:45 WBC 11.4 H (3.8-10.6) k/uL Neutrophils # 8.2 H (1.3-7.7) k/uL BUN (7-17) mg/dL POC Glucose (mg/dL) 102 H 138 H (75-99) mg/dL 10/16/20 Range/Units 04:45 WBC (3.8-10.6) k/uL Neutrophils # (1.3-7.7) k/uL BUN 5 L (7-17) mg/dL POC Glucose (mg/dL) (75-99) mg/dL Microbiology - Last 24 Hours (Table) 10/12/20 10:37 Gram Stain - Preliminary Aspirate Body Fluid Culture - Preliminary Serratia marcescens Assessment and Plan Assessment: ASSESSMENT Posterior cul-de-sac abscess, adjacent to the uterus measuring 5.8 x 2.4 x 3.7 cm. Most likely related to acute diverticulitis. Less likely tubo-ovarian abscess Status post IR guided drainage of abscess with cultures growing gram-negative bacilli Serratia Continued ongoing nicotine dependence Hypokalemia Hypertension, resolved Leukocytosis, resolved DVT prophylaxis GI prophylaxis Full code PLAN: Patient's antibodies have been changed to ceftazidime and Flagyl yesterday. Awaiting recommendations from infectious disease for discharge antibiotics. We'll adjust her dose of insulin depending upon her blood sugars. Continue with current medication regimen. Further recommendations to follow depending on the progress of the patient
[2020-10-16 17:18] LABS: Glucose,Whole Blood 103 mg/dL (75-99)
[2020-10-16 19:57] LABS: Glucose,Whole Blood 85 mg/dL (75-99)
--- NOTE | 2020-10-17 00:05 | PN ---
PROGRESS NOTE DATE OF SERVICE: 10/16/2020 REASON FOR FOLLOWUP: Intraabdominal abscess. INTERVAL HISTORY: Patient is afebrile. The patient is breathing comfortably. Denies having any chest pain. No shortness of breath. No cough. Abdominal pain is currently improved. No nausea, vomiting or diarrhea. PHYSICAL EXAMINATION: Blood pressure 130/69 with a pulse of 79, temperature 98.1. She is 93% on room air. General description: The patient is a middle-aged female lying in bed in no distress. Respiratory system: Unlabored breathing, clear to auscultation anteriorly. Heart S1, S2. Regular rate and rhythm. Abdomen soft, no tenderness. LABS: Hemoglobin is 13.4, white count 11.4. Creatinine 0.61. DIAGNOSTIC IMPRESSION AND PLAN: Patient with intraabdominal abscess from perforated diverticulitis. Culture with Serratia Marcescens Candida species for which the patient is currently covered with and Flagyl. CT will be repeated on Sunday. If there is overall resolution of the abscess, will transition to oral antibiotic. Otherwise, he will need a midline and outpatient antibiotic. MMODL / IJN: [id number] /
[2020-10-17 05:55] LABS: Basophils % (A) 0 %; Eosinophils # (A) 0.2 k/uL (0-0.7); Eosinophils % (A) 2 %; HCT 41.1 % (34.0-46.0); HGB 13.6 gm/dL (11.4-16.0); Lymphocytes # (A) 0.9 k/uL (1.0-4.8); Lymphocytes % (A) 9 %; MCH 32.1 pg (25.0-35.0); MCHC 33.2 g/dL (31.0-37.0); MCV 96.8 fL (80.0-100.0); Monocytes # (A) 0.9 k/uL (0-1.0); Monocytes % (A) 8 %; Neutrophils # (A) 8.7 k/uL (1.3-7.7); Neutrophils % (A) 80 %; Platelet Count 285 k/uL (150-450); RBC 4.24 m/uL (3.80-5.40); RDW 13.1 % (11.5-15.5); WBC 10.8 k/uL (3.8-10.6)
[2020-10-17 07:41] LABS: Glucose,Whole Blood 71 mg/dL (75-99)
[2020-10-17] MEDS: INSULIN ASPART (NovoLOG) 100 UNIT/ML VIAL SQ SCH ×3 (08:42→17:32)
[2020-10-17] MEDS: CEFEPIME 2 GM in SODIUM CHLORIDE 0.9% 100 ML IVPB SCH ×3 (08:46→23:47)
[2020-10-17] MEDS: POTASSIUM CHLORIDE ER 20 MEQ TAB.ER PO SCH (08:48)
[2020-10-17] MEDS: NICOTINE 21MG/24HR PATCH TRANSDERM SCH (08:48)
[2020-10-17] MEDS: HEPARIN SODIUM,PORCINE/PF 5,000 UNIT/0.5 ML SYRINGE SQ SCH ×2 (08:48→21:14)
[2020-10-17] MEDS: FAMOTIDINE 20 MG TAB PO SCH ×2 (08:48→21:14)
[2020-10-17] MEDS: metroNIDAZOLE 500 MG TAB PO SCH ×3 (08:48→21:15)
[2020-10-17 10:09] LABS: African American GFR (CKD) 120.2 (60.0-200.0); Anion Gap 6.9 mmol/L (4.00-12.00); Calcium 8.4 mg/dL (8.7-10.3); Carbon Dioxide 29.1 mmol/L (21.6-31.8); Non-African American GFR(CKD) 103.7 (60.0-200.0); Potassium 4.2 mmol/L (3.5-5.5)
[2020-10-17 12:30] LABS: Glucose,Whole Blood 79 mg/dL (75-99)
[2020-10-17 17:25] LABS: Glucose,Whole Blood 77 mg/dL (75-99)
--- NOTE | 2020-10-17 18:43 | P.PN ---
Subjective Progress Note Date: 10/17/20 Principal diagnosis: Posterior cul-de-sac abscess Ms. Buitrago is a 60-year-old female with past medical history of asthma, GERD, hypertension, hyperlipidemia, anxiety and depression coming into the hospital with a chief complaint of abdominal and back pain. Patient had CAT scan of the abdomen showing left to poor weight gain abscess and acute diverticulitis with small skin abscess. Eventually patient underwent IUI guided drainage of the abscess and the cultures showing Thomas MR since this. Patient's blood cultures have been negative. Patient has been continued on IV Zosyn as per ID Dr. Pulido's recommendations. On 10/16/2020 - patient is seen and examined at bedside. Patient states that he does not have abdominal pain anymore. She denies having any chest pain or pa lpitations. No cough or difficulty in breathing. Denies having any fevers chills or rigors. No dysuria or hematuria. Patient has been tolerating diet and had a bowel movement yesterday. On reviewing the vitals temperature of 98.4, heart rate 91, respiratory rate 18, blood pressure 120/81 saturating at 93% on room air. On reviewing the patient's labs white count of 11.4, hemoglobin 13.8, platelets 277. Sodium 137, potassium 4.3, chloride 102, bicarb 30, BUN 5 creatinine 0.64. Patient's antibiotics have been changed to cefepime and Flagyl by ID yesterday. On 10/17/2020 - patient is seen and examined at bedside. She states she does not have abdominal pain. Denies having any complaints overnight. She has been eating and drinking okay. No complaints of chest pain or palpitations, no cough, no difficulty in breathing, no abdominal pain nausea vomiting or diarrhea. No dysuria or hematuria. Reviewing the vitals temperature 97.7, heart rate 68, respiratory 16, blood pressure 104/71, saturating at 98% on room air. Labs from this morning white count of 10.8, hemoglobin 13.6, platelets 285. Sodium 136 compression 4.2, chloride 100, bicarbonate 29, BUN 6, creatinine 0.5. Medications reviewed-Xanax, cefepime, Pepcid, heparin, NovoLog, Flagyl, morphine, nicotine patch, Zofran, but patient tolerated, Ultram Objective - Vital Signs Vital signs: Vital Signs Temp 97.9 F 10/17/20 12:42 Pulse 78 10/17/20 12:42 Resp 19 10/17/20 12:42 BP 98/61 10/17/20 12:42 Pulse Ox 94 L 10/17/20 12:42 Intake & Output 10/16/20 10/17/20 10/17/20 18:59 06:59 18:59 Intake Total 580 Balance 580 Intake: Intake, IV Titration 100 Amount Cefepime 2 gm In Sodium 100 Chloride 0.9% 100 ml @ 25 mls/hr IVPB Q8HR [facility] Rx# :[id number] Oral 480 Other: Voiding Method Toilet Toilet Toilet # Voids 2 - Exam GENERAL: The patient is alert and oriented x3, not in any acute distress. Well developed, well nourished. HEENT: Pupils are round and equally reacting to light. EOMI. No scleral icterus. No conjunctival pallor. CARDIOVASCULAR: S1 and S2 muffled PULMONARY: Diminished breath sounds bilaterally with no wheezing or rhonchi noted ABDOMEN: Soft, mildly tender, nondistended, normoactive bowel sounds. MUSCULOSKELETAL: No joint swelling or deformity. EXTREMITIES: No cyanosis, clubbing, or pedal edema. NEUROLOGICAL: Gross neurological examination did not reveal any focal deficits. - Labs CBC & Chem 7: 10/17/20 05:08 10/17/20 05:08 Labs: Abnormal Lab Results - Last 24 Hours (Table) 10/16/20 10/17/20 10/17/20 Range/Units 17:11 05:08 05:08 WBC 10.8 H (3.8-10.6) k/uL Neutrophils # 8.7 H (1.3-7.7) k/uL Lymphocytes # 0.9 L (1.0-4.8) k/uL BUN 6.0 L (9.0-27.0) mg/dL Creatinine 0.5 L (0.6-1.5) mg/dL POC Glucose (mg/dL) 103 H (75-99) mg/dL Calcium 8.4 L (8.7-10.3) mg/dL 10/17/20 Range/Units 07:39 WBC (3.8-10.6) k/uL Neutrophils # (1.3-7.7) k/uL Lymphocytes # (1.0-4.8) k/uL BUN (9.0-27.0) mg/dL Creatinine (0.6-1.5) mg/dL POC Glucose (mg/dL) 71 L (75-99) mg/dL Calcium (8.7-10.3) mg/dL Microbiology - Last 24 Hours (Table) 10/12/20 10:37 Gram Stain - Final Aspirate Body Fluid Culture - Final Serratia marcescens Eikenella species Assessment and Plan Assessment: ASSESSMENT Posterior cul-de-sac abscess, adjacent to the uterus measuring 5.8 x 2.4 x 3.7 cm. Most likely related to acute diverticulitis. Less likely tubo-ovarian abscess Status post IR guided drainage of abscess with cultures growing gram-negative bacilli Serratia Continued ongoing nicotine dependence Hypokalemia Hypertension, resolved Leukocytosis, resolved DVT prophylaxis GI prophylaxis Full code PLAN: Patient's antibodies have been changed to ceftazidime and Flagyl. Patient is getting a repeat CAT scan of the abdomen for resolution/progression of the abscess . Awaiting final recommendations from infectious disease for discharge antibiotics. Will adjust her dose of insulin depending upon her blood sugars. Continue with current medication regimen. Further recommendations to follow depending on the progress of the patient
[2020-10-17] MEDS: ALPRAZolam 0.25 MG TAB PO PRN (21:18)
[2020-10-17 23:43] LABS: Glucose,Whole Blood 86 mg/dL (75-99)
[2020-10-17] MEDS: ONDANSETRON 4 MG/2 ML VIAL IVP PRN (23:59)
[2020-10-18] MEDS: MORPHINE SULFATE 4 MG/ML SYRINGE IV PRN
[2020-10-18] MEDS: INSULIN ASPART (NovoLOG) 100 UNIT/ML VIAL SQ SCH ×5 (00:32→21:20)
[2020-10-18 05:48] LABS: Glucose,Whole Blood 81 mg/dL (75-99)
--- NOTE | 2020-10-18 05:52 | PN ---
PROGRESS NOTE DATE OF SERVICE: 10/17/2020 REASON FOR FOLLOWUP: Intraabdominal abscess from perforated diverticulitis. INTERVAL HISTORY: Patient is afebrile. The patient is breathing comfortably. The patient denies having any chest pain. No shortness of breath, cough. Abdominal pain has improved and no diarrhea. EXAMINATION: Vital signs are stable. General description is a middle-aged female lying in bed in no distress. Respiratory system: Unlabored breathing. Clear to auscultation anteriorly. Heart S1, S2. Regular rate and rhythm. ABDOMEN: Soft, no tenderness. EXTREMITIES: No edema of the feet. LABS: The patient's white count normalized 10.3. Blood culture has been negative. DIAGNOSTIC IMPRESSION AND PLAN: Patient with intraabdominal abscess from perforated sigmoid diverticulitis, status post CT-guided drainage. Abdominal cultures with Serratia and . Anaerobe culture pending. Patient is covered with cefepime and Flagyl. Plan is to repeat a CT scan in the morning and if overall resolution of the abscess will transition to oral Cipro and Flagyl. However, if still residual abscess, may need Midline and outpatient antibiotic. MMODL / IJN: [id number] /
[2020-10-18] MEDS: IOPAMIDOL CONTRAST (ORAL USE) VIAL PO PRN ×2 (06:49→07:42)
[2020-10-18 06:58] LABS: Glucose,Whole Blood 87 mg/dL (75-99)
[2020-10-18] MEDS: HEPARIN SODIUM,PORCINE/PF 5,000 UNIT/0.5 ML SYRINGE SQ SCH ×2 (08:54→20:08)
[2020-10-18] MEDS: FAMOTIDINE 20 MG TAB PO SCH ×2 (08:54→20:08)
[2020-10-18] MEDS: POTASSIUM CHLORIDE ER 20 MEQ TAB.ER PO SCH (08:54)
[2020-10-18] MEDS: NICOTINE 21MG/24HR PATCH TRANSDERM SCH (08:54)
[2020-10-18] MEDS: metroNIDAZOLE 500 MG TAB PO SCH (08:55)
[2020-10-18] MEDS: CEFEPIME 2 GM in SODIUM CHLORIDE 0.9% 100 ML IVPB SCH ×3 (08:55→23:40)
--- NOTE | 2020-10-18 08:55 | CT ---
EXAMINATION TYPE: CT abdomen pelvis w con DATE OF EXAM: 10/18/2020 HISTORY: follow up abscess CT DLP: 580.4mGycm Automated Exposure Control for Dose Reduction was Utilized. CONTRAST: CT scan of the abdomen and pelvis is performed with IV Contrast, patient injected with 100 mL of Isov ue 300. COMPARISON: CT abdomen and pelvis 11 days ago. FINDINGS: LUNG BASES: No significant abnormality is appreciated. LIVER/GB: Prominent fold in gallbladder. PANCREAS: No significant abnormality is seen. SPLEEN: No significant abnormality is seen. ADRENALS: No significant abnormality is seen. KIDNEYS: No significant abnormality is seen. BOWEL: Oral contrast on current study reaches level of mid transverse colon evaluation of distal bridgett l slightly suboptimal. No suspicious small bowel dilatation. Mild to moderate fecal colonic prominenc e of the transverse and left colon extending into sigmoid colon. Sigmoid colonic diverticulosis. Pers istent rim-enhancing thin walled fluid collections with air-fluid levels in the left pelvis. Anterior collection measures 2.6 x 2.0 cm current study image 55 increased in size from prior. Posterior bridger ection measures 2.7 x 1.7 cm axial image 58 decrease in size from prior. Persistent pahw-[id number] ill-defined fluid and fat stranding at this level. No new abscesses. Stable prominent but subcentimet er lymph node superiorly image 51. No free air. UTERUS/ADNEXA: Anteverted uterus. Scattered bilateral pelvic phleboliths. LYMPH NODES: No greater than 1cm abdominal or pelvic lymph nodes are appreciated. OSSEOUS STRUCTURES: Transitional type vertebra lumbosacral junction. Facet Arthropathy lower lumbar l evels. OTHER: Mild calcified plaque of the aorta extends into branch vessels. IMPRESSION: There is fairly stable persistent inflammatory change left pelvis. There are 2 rim-enhanc ing abscesses, anterior slightly increased in size from prior, posterior slightly diminished in size from prior. No new abscesses or free air. Findings could reflect product of diverticulitis, other lesvia ologies not excluded.
[2020-10-18] MEDS: ONDANSETRON 4 MG/2 ML VIAL IVP PRN ×2 (09:11→21:51)
[2020-10-18 11:51] LABS: Glucose,Whole Blood 88 mg/dL (75-99)
[2020-10-18 12:01] VITALS: RESP 16
[2020-10-18] MEDS: ALPRAZolam 0.25 MG TAB PO PRN (14:38)
--- NOTE | 2020-10-18 14:48 | P.PN ---
Subjective Progress Note Date: 10/18/20 This is a 60-year-old female who was recently admitted with abdominal and back pain that is radiating to the left side anteriorly and has been ongoing for 2 weeks and getting progressively worse. She is being closely monitored and also being followed by surgery recommending interventional radiology guided possible drainage abscess of the abdomen today. Patient was brought down for the possibility of this drainage and patient was hypertensive and the procedure was aborted. Continues on IV antibiotics and will continue at this time. Patient is on IV Zosyn with Dr. veronica clifford. White blood count today is 15.9 with hemoglobin of 13.9, sodium is 144 with a potassium of 3.5 and current creatinine is 0.6. Magnesium is 1.9. Patient is on gentle IV fluids in the form of dextrose and normal saline as she was having some low blood sugar readings and has been nothing by mouth and will continue with Accu-Cheks and monitor closely. Will add hydralazine as needed for blood pressure control along with Norvasc 10 mg daily with attempts at possibly repeating IR guarded drainage abscess in the morning. 10/12/2020 Patient is seen and evaluated and follow-up this morning continues to have some generalized abdominal discomfort. She was started on amlodipine and tolerated and blood pressure is more manageable and patient will undergo IR guided drainage of the abscess. Patient continues on IV antibiotics and infectious disease has been consulted and appreciate input on determining discharge antibiotics. Cultures were obtained during the drainage which was reported as purulent and awaiting for culture finalization to determine antibiotics upon discharge. Patient will be started on clear liquids and monitor closely for tolerance. No reports of chest pain or palpitations. Patient denies shortness of breath. Patient is afebrile. Blood count today is elevated at 17.3 and hemoglobin is stable at 14.7, sodium is 141 and potassium is 3.1 and will replace and repeat a.m. labs. 10/13/2020 Patient is seen in follow-up this morning and potassium was low found to be 2.8 and will replace per protocol and repeat labs and monitor closely. White count trending down at 13.3 and hemoglobin is stable at 13.0. Infectious disease following and awaiting for culture finalization from the abscess drainage to determine discharge antibiotics and the need for possible IV antibiotic therapy in the outpatient setting. Surgery also following closely. Patient continues on IV Zosyn and will continue at this time while waiting for cultures. Blood cultures remain negative. Patient having intermittent low-grade temperatures of 99 and will continue to monitor closely. Blood pressure being closely monitored and patient was having some lower readings and will discontinue Norvasc and continue to monitor closely. Patient does not normally take any medications for hypertension. Patient continues on clear liquids and will discuss with surgery about possibly advancing slowly as tolerated. 10/14/2020 Patient is seen and evaluated this morning and is being closely monitored. Preliminary culture showing gram-negative bacilli and patient is maintained on Zosyn and will continue at this time. Infectious disease is following. Surgery also following. White blood count is 10.5 hemoglobin is stable at 12.4, sodium is 138 with a potassium of 3.6 and current magnesium is 1.9. Have added 20 Meq daily of potassium. Will repeat a.m. labs and monitor closely. Patient was tolerating clear liquids and being advanced as tolerated per surgery recommendations. No reports of nausea or vomiting noted. Abdominal discomfort has improved. Patient is afebrile 10/15/2020 Patient is seen and evaluated in follow-up continues to wait for diverticular abscess aspiration cultures to finalized. Infectious disease is following. Patient is maintained on IV Zosyn and will continue. Preliminary culture showing Serratia Marcescens and awaiting for the rest along with anaerobic culture to finalized. Patient will continue on IV Zosyn for now. Patient's abdominal pain is minimal she states and is passing gas and having bowel movements and tolerating diet with no problems. Patient continues on IV morphine and will add Ultram as needed as the patient would like to start with oral as she will be going home soon. Patient states that the pain becomes slightly more intense at night. Instructed the patient to increase activity as tolerated and continue to encourage oral intake. She remains afebrile. Surgery also following and clear from their standpoint once discharge antibiotics are determined. She will need outpatient follow-up for colonoscopy with Dr. martin as discussed in the next 6-8 weeks. On 10/16/2020 - patient is seen and examined at bedside. Patient states that he does not have abdominal pain anymore. She denies having any chest pain or palpitations. No cough or difficulty in breathing. Denies having any fevers chills or rigors. No dysuria or hematuria. Patient has been tolerating diet and had a bowel movement yesterday. On reviewing the vitals temperature of 98.4, heart rate 91, respiratory rate 18, blood pressure 120/81 saturating at 93% on room air. On reviewing the patient's labs white count of 11.4, hemoglobin 13.8, platelets 277. Sodium 137, potassium 4.3, chloride 102, bicarb 30, BUN 5 creatinine 0.64. Patient's antibiotics have been changed to cefepime and Flagyl by ID yesterday. On 10/17/2020 - patient is seen and examined at bedside. She states she does not have abdominal pain. Denies having any complaints overnight. She has been eating and drinking okay. No complaints of chest pain or palpitations, no cough, no difficulty in breathing, no abdominal pain nausea vomiting or diarrhea. No dysuria or hematuria. Reviewing the vitals temperature 97.7, heart rate 68, respiratory 16, blood pressure 104/71, saturating at 98% on room air. Labs from this morning white count of 10.8, hemoglobin 13.6, platelets 285. Sodium 136 compression 4.2, chloride 100, bicarbonate 29, BUN 6, creatinine 0.5. 10/18/2020 Patient is seen and evaluated in follow-up with no acute overnight issues. Patient states that her abdominal discomfort has resolved and is tolerating diet. Patient has been taking oral Flagyl along with IV cefepime and infectious disease is following. Patient continues to have nausea and this morning experie nced an episode of vomiting shortly after taking oral Flagyl and we'll transition to IV Flagyl and monitor closely. Zofran also not helping much with the nausea and will use IV Reglan as well. Patient had follow-up CT of the abdomen which shows 2 rim-enhancing abscesses anterior slightly increased in size from the previous and posterior slightly diminished in size from prior with no new abscess or free air noted. IR consulted once again the possibility of draining the anterior abscess and will await report. Will also be receiving a midline for IV antibiotic therapy in the outpatient setting. This was discussed with infectious disease. Patient remains afebrile. Review of systems: Constitutional: Reports of fatigue, no reports of fever, no reports of chills Cardiovascular: No reports of chest pain or palpitations Respiratory: No reports of shortness of breath or cough GI: Reports nausea and an episode of vomiting this morning : No reports of dysuria or retention Neurovascular: No reports of weakness or numbness All medications have been reviewed Objective - Vital Signs Vital signs: Vital Signs Temp 97.6 F 10/18/20 05:52 Pulse 74 10/18/20 05:52 Resp 18 10/18/20 05:52 BP 93/53 10/18/20 05:52 Pulse Ox 93 L 10/18/20 05:52 Intake & Output 10/17/20 10/18/20 10/18/20 18:59 06:59 18:59 Intake Total 800 350 Balance 800 350 Intake: Intake, IV Titration 200 100 Amount Cefepime 2 gm In Sodium 200 100 Chloride 0.9% 100 ml @ 25 mls/hr IVPB Q8HR [facility] Rx# :[id number] Oral 600 250 Other: Voiding Method Toilet Toilet - Exam GENERAL: The patient is alert and oriented x3, not in any acute distress. Well developed, well nourished. HEENT: Pupils are round and equally reacting to light. EOMI. No scleral icterus. No conjunctival pallor. Normocephalic, atraumatic. No pharyngeal erythema. No thyromegaly. CARDIOVASCULAR: S1 and S2 muffled PULMONARY: Diminished breath sounds bilaterally with no wheezing or rhonchi noted ABDOMEN: Soft, mildly tender, nondistended, normoactive bowel sounds. No palpable organomegaly. MUSCULOSKELETAL: No joint swelling or deformity. EXTREMITIES: No cyanosis, clubbing, or pedal edema. NEUROLOGICAL: Gross neurological examination did not reveal any focal deficits. SKIN: No rashes. no petechiae. - Labs CBC & Chem 7: 10/17/20 05:08 10/17/20 05:08 Assessment and Plan Assessment: posterior cul-de-sac abscess, adjacent to the uterus measuring 5.8 x 2.4 x 3.7 cm. Most likely related to acute diverticulitis. Less likely tubo-ovarian abscess Status post IR guided drainage of abscess with cultures growing serratia marcescens and Eikenella species Continued ongoing nicotine dependence Hypokalemia Hypertension, resolved Leukocytosis, resolved DVT prophylaxis GI prophylaxis Full code Plan: Continue with current medication regimen and continue with IV antibiotics in the form of cefepime and we'll transition to oral Flagyl to IV Flagyl as patient states she is having increased nausea and an episode of vomiting shortly after taking the Flagyl and will monitor closely. Repeat CT abdomen shows increased in size on the anterior abscess along with the posterior abscess showing a decrease in size and will consult IR for possible drainage of the abscess. This was discussed with infectious disease and will also schedule patient for midline as patient will need IV antibiotic therapy in the outpatient setting. Patient has Zofran as needed and will add Reglan as needed as well. Patient is tolerating diet and is urinating and having bowel movements with no difficulties. Further recommendations to follow based on the clinical course of the patient. Will await IR report with possible drainage of the abscess. Possible discharge in 24-48 hours.
[2020-10-18] MEDS: metroNIDAZOLE-NS PMX 500 MG in SALINE 1 100ML.BAG IVPB SCH ×2 (15:09→23:39)
--- NOTE | 2020-10-18 16:24 | P.PN ---
Subjective Progress Note Date: 10/18/20 Patient is feeling well, no complaints, tolerating diet. Objective - Vital Signs Vital signs: Vital Signs Temp 98.1 F 10/18/20 11:30 Pulse 82 10/18/20 11:30 Resp 16 10/18/20 11:30 BP 122/74 10/18/20 11:30 Pulse Ox 94 L 10/18/20 11:30 Intake & Output 10/17/20 10/18/20 10/18/20 18:59 06:59 18:59 Intake Total 800 350 Balance 800 350 Intake: Intake, IV Titration 200 100 Amount Cefepime 2 gm In Sodium 200 100 Chloride 0.9% 100 ml @ 25 mls/hr IVPB Q8HR [facility] Rx# :[id number] Oral 600 250 Other: Voiding Method Toilet Toilet Toilet - Constitutional General appearance: Present: cooperative - Cardiovascular Rhythm: regular - Gastrointestinal Gastrointestinal Comment(s): S/NT/ND - Labs CBC & Chem 7: 10/17/20 05:08 10/17/20 05:08 Assessment and Plan Assessment: Abscess/complex fluid collection in pelvis Plan: ABX per ID Surgically stable Diet as tolerated Patient will need to follow up with me in 6-8 weeks after resolution of infection/inflammation for colonoscopy. This was discussed with the patient
[2020-10-18 17:09] LABS: Glucose,Whole Blood 88 mg/dL (75-99)
--- NOTE | 2020-10-18 19:46 | PN ---
PROGRESS NOTE DATE OF SERVICE: 10/18/2020 REASON FOR FOLLOWUP: Intraabdominal abscess. INTERVAL HISTORY: Patient is afebrile. The patient is breathing comfortably. The patient's abdominal pain is currently controlled. No chest pain, shortness of breath or cough. PHYSICAL EXAMINATION: Blood pressure 122/74, pulse of 83, temperature 98.1. She is 94% on room air. General description: The patient is a middle-aged female lying in bed in no distress. Respiratory system: Unlabored breathing, clear to auscultation anteriorly. Heart S1, S2. Regular rate and rhythm. Abdomen soft, no tenderness. LABS: The patient did have a repeat CT scan that shows slight decrease in size of the one abscess. The other abscess has slightly decreased. DIAGNOSTIC IMPRESSION AND PLAN: Patient with multiple abdominal abscess from diverticular disease, status post CT- guided drainage of one of the abscesses which seemed to have decreased in size. Those cultures were positive for Serratia and Eikenella and the patient covered with cefepime, Flagyl with decreased size of the other abscess for which IR has been reconsulted for drainage of this abscess. The patient will need a PICC line for outpatient antibiotics. Continue supportive care. MMODL / IJN: [id number] /
[2020-10-18 20:26] LABS: Glucose,Whole Blood 82 mg/dL (75-99)
[2020-10-18] MEDS: METOCLOPRAMIDE 5 MG/ML 2 ML VIAL IVP PRN (21:51)
[2020-10-19] MEDS: METOCLOPRAMIDE 5 MG/ML 2 ML VIAL IVP PRN (03:47)
[2020-10-19 04:25] LABS: Basophils % (A) 0 %; Eosinophils # (A) 0.2 k/uL (0-0.7); Eosinophils % (A) 2 %; HCT 42.1 % (34.0-46.0); HGB 14.3 gm/dL (11.4-16.0); Lymphocytes # (A) 1.5 k/uL (1.0-4.8); Lymphocytes % (A) 14 %; MCH 32.6 pg (25.0-35.0); MCHC 33.9 g/dL (31.0-37.0); MCV 96.2 fL (80.0-100.0); Monocytes % (A) 9 %; Neutrophils # (A) 7.9 k/uL (1.3-7.7); Neutrophils % (A) 74 %; Platelet Count 325 k/uL (150-450); RBC 4.38 m/uL (3.80-5.40); RDW 13.2 % (11.5-15.5); WBC 10.7 k/uL (3.8-10.6)
[2020-10-19] MEDS: metroNIDAZOLE-NS PMX 500 MG in SALINE 1 100ML.BAG IVPB SCH (07:03)
[2020-10-19 07:06] LABS: Glucose,Whole Blood 78 mg/dL (75-99)
[2020-10-19] MEDS: INSULIN ASPART (NovoLOG) 100 UNIT/ML VIAL SQ SCH ×2 (07:27→12:28)
[2020-10-19] MEDS: NICOTINE 21MG/24HR PATCH TRANSDERM SCH (08:10)
[2020-10-19] MEDS: POTASSIUM CHLORIDE ER 20 MEQ TAB.ER PO SCH (08:10)
[2020-10-19] MEDS: FAMOTIDINE 20 MG TAB PO SCH (08:11)
[2020-10-19] MEDS: HEPARIN SODIUM,PORCINE/PF 5,000 UNIT/0.5 ML SYRINGE SQ SCH (08:11)
[2020-10-19] MEDS: CEFEPIME 2 GM in SODIUM CHLORIDE 0.9% 100 ML IVPB SCH ×2 (08:11→16:19)
[2020-10-19] MEDS: ONDANSETRON 4 MG/2 ML VIAL IVP PRN (08:20)
[2020-10-19 11:05] LABS: African American GFR (CKD) 113.2 (60.0-200.0); Anion Gap 8.5 mmol/L (4.00-12.00); Calcium 8.7 mg/dL (8.7-10.3); Carbon Dioxide 27.5 mmol/L (21.6-31.8); Non-African American GFR(CKD) 97.7 (60.0-200.0); Potassium 4.2 mmol/L (3.5-5.5)
[2020-10-19 12:11] LABS: Glucose,Whole Blood 75 mg/dL (75-99)
[2020-10-19 12:12] VITALS: BP 110/75; PULSE 94; TEMP 98
--- NOTE | 2020-10-19 13:42 | P.PN ---
Progress Note - Text Progress Note Date: 10/19/20 REASON FOR FOLLOWUP: Intraabdominal abscess. INTERVAL HISTORY: Patient remains to be afebrile. The patient is breathing comfortably. The patient's abdominal pain is currently controlled. The patient denies chest pain, shortness of breath or cough. And no diarrhea PHYSICAL EXAMINATION: Blood pressure 120/70, pulse of 83, temperature 98.1. She is 94% on room air. General description: The patient is a middle-aged female lying in bed in no distress. Respiratory system: Unlabored breathing, clear to auscultation anteriorly. Heart S1, S2. Regular rate and rhythm. Abdomen soft, no tenderness. LABS: Reviewed DIAGNOSTIC IMPRESSION AND PLAN: Patient with multiple abdominal abscess from diverticular disease, status post CT- guided drainage of one of the abscesses which seemed to have decreased in size. Those cultures were positive for Serratia and Eikenella and the patient covered with cefepime, Flagyl with decreased size of the other abscess for which IR has been reconsulted for drainage of this abscess, however I am mention that not available to drain that abscess Patient will get a PICC line and will need a prolonged course of IV antibiotic therapy As abscess has not been drain this has been explained to the patient in layman terms. For now we'll plan on 2 weeks of IV cefepime 2 g every 8 hours along with Oral Flagyl 500 mg every 8 hours for 2 weeks with repeat CAT scan at that point This was explained in detail to the patient as well as to the nurse practitioner working or discharge
[2020-10-19 17:00] LABS: Glucose,Whole Blood 93 mg/dL (75-99)
--- NOTE | 2020-10-20 15:50 | P.DS ---
Providers Date of admission: 10/07/20 15:59 Expected date of discharge: 10/19/20 Attending physician: Bradley Keyes MD Consults: 10/07/20 21:21 Consult Physician Urgent Consulting Provider: Aliza Evans Consult Reason/Comments: possible acute diverticulitis with abscess Do you want consulting provider notified?: Yes 10/07/20 21:22 Consult Physician Urgent Consulting Provider: Mi Almaguer Consult Reason/Comments: possible tubo-ovarian abscess Do you want consulting provider notified?: Yes 10/12/20 14:35 Consult Physician Routine Consulting Provider: Rocio Pulido Consult Reason/Comments: ABX Do you want consulting provider notified?: Yes Primary care physician: Stated None Hospital Course: Final diagnosis posterior cul-de-sac abscess, adjacent to the uterus measuring 5.8 x 2.4 x 3.7 cm. Most likely related to acute diverticulitis. Less likely tubo-ovarian abscess Status post IR guided drainage of abscess with cultures growing serratia marcescens and Eikenella species Continued ongoing nicotine dependence Hypokalemia Hypertension, resolved Leukocytosis, resolved DVT prophylaxis GI prophylaxis Full code Discharge disposition Patient is being discharged in a stable condition with guarded prognosis to home. Patient will follow-up with Dr. Porras in the outpatient setting upon discharge. Patient also instructed to follow-up with Dr. andres along with infectious disease Dr. Pulido in the clinic. Patient is to continue with oral antibiotics in the form of Flagyl 500 mg 3 times daily for short course along with IV antibiotics in the form of cefepime and patient has received a midline. Total time taken is greater than 35 minutes. Hospital course This is a 60-year-old female who was recently admitted with abdominal and back pain that is radiating to the left side anteriorly and has been ongoing for 2 weeks and getting progressively worse. She is being closely monitored and also being followed by surgery recommending interventional radiology guided possible drainage abscess of the abdomen today. Patient was brought down for the possibility of this drainage and patient was hypertensive and the procedure was aborted. Continues on IV antibiotics and will continue at this time. Patient is on IV Zosyn with Dr. andres following. White blood count today is 15.9 with hemoglobin of 13.9, sodium is 144 with a potassium of 3.5 and current creatinine is 0.6. Magnesium is 1.9. Patient is on gentle IV fluids in the form of dextrose and normal saline as she was having some low blood sugar readings and has been nothing by mouth and will continue with Accu-Cheks and monitor closely. Will add hydralazine as needed for blood pressure control along with Norvasc 10 mg daily with attempts at possibly repeating IR guarded drainage abscess in the morning. 10/19/2020 Patient is seen in follow-up this morning and has received a midline for outpatient IV antibiotic therapy and will continue with [facility] infusion and Homecare and close outpatient follow-up with infectious disease Dr. Pulido. Patient to also follow-up with Dr. andres outpatient in the next 6-8 weeks for colonoscopy once diverticular abscesses have resolved. Patient's cultures finalized showing serratia marcescens and Eikenella species. Repeat CT abdomen shows continued abscess and will require close outpatient follow-up and continued IV antibiotic therapy along with oral antibiotics. Patient will also continue with Zofran and Reglan as needed for nausea and vomiting. Patient was having some mild nausea noted with Flagyl and instructed the patient to take with meals or crackers to help alleviate some of the nausea. Currently no reports of chest pain, worsening shortness of breath, or palpitations. Patient is afebrile. No reports of nausea or vomiting and patient is tolerating diet. Patient will be discharged home today. On exam vital signs are stable. Cardio S1, S2 are muffled. Respiratory system shows diminished breath sounds at the bases with no wheezing or rhonchi noted. Abdomen is soft and nontender. Nervous system shows no focal deficits. Please refer to medication reconciliation sheet for a list of medications. Patient Condition at Discharge: Stable Plan - Discharge Summary Discharge Rx Participant: No New Discharge Prescriptions: New Nicotine 21Mg/24Hr Patch [Habitrol] 1 patch TRANSDERM DAILY 30 Days #30 patch Nicotine 14Mg/24Hr Patch [Habitrol] 1 patch TRANSDERM DAILY 30 Days #30 patch traMADol HCl [Ultram] 50 mg PO Q6HR PRN 3 Days #12 tab PRN Reason: Pain Metoclopramide [Reglan] 10 mg PO ACHS PRN #40 tab PRN Reason: Nausea Nicotine 7Mg/24Hr Patch [Habitrol] 1 patch TRANSDERM DAILY 14 Days #14 patch.td24 Potassium Chloride ER [K-Dur 20] 20 meq PO DAILY 30 Days #30 tab.er.prt Famotidine [Pepcid] 20 mg PO Q12HR 30 Days #60 tab metroNIDAZOLE [Flagyl] 500 mg PO TID #42 tab Ondansetron Odt [Zofran Odt] 4 mg PO Q8HR PRN #30 tab PRN Reason: Nausea Continue Ibuprofen [Motrin Ib] 400 mg PO Q8H PRN PRN Reason: Pain Cetirizine HCl [Zyrtec] 10 mg PO DAILY Biotin 5 mg PO DAILY Discharge Medication List Biotin 5 mg PO DAILY 10/07/20 [History] Cetirizine HCl [Zyrtec] 10 mg PO DAILY 10/07/20 [History] Ibuprofen [Motrin Ib] 400 mg PO Q8H PRN 10/07/20 [History] Famotidine [Pepcid] 20 mg PO Q12HR 30 Days #60 tab 10/15/20 [Rx] Nicotine 14Mg/24Hr Patch [Habitrol] 1 patch TRANSDERM DAILY 30 Days #30 patch 10/15/20 [Rx] Nicotine 21Mg/24Hr Patch [Habitrol] 1 patch TRANSDERM DAILY 30 Days #30 patch 10/15/20 [Rx] Nicotine 7Mg/24Hr Patch [Habitrol] 1 patch TRANSDERM DAILY 14 Days #14 patch.td24 10/15/20 [Rx] Potassium Chloride ER [K-Dur 20] 20 meq PO DAILY 30 Days #30 tab.er.prt 10/15/20 [Rx] traMADol HCl [Ultram] 50 mg PO Q6HR PRN 3 Days #12 tab 10/15/20 [Rx] Metoclopramide [Reglan] 10 mg PO ACHS PRN #40 tab 10/19/20 [Rx] Ondansetron Odt [Zofran Odt] 4 mg PO Q8HR PRN #30 tab 10/19/20 [Rx] metroNIDAZOLE [Flagyl] 500 mg PO TID #42 tab 10/19/20 [Rx] Follow up Appointment(s)/Referral(s): Gurwinder Andres DO [Doctor of Osteopathic Medicine] - 6 Weeks (The office will call you back with an appointment time and date if they do not call you in the next two day please call them.) Lizette Porras MD [REFERRING] - 1-2 Days (In order to become a patient of this office please call.) [facility], [NON-STAFF] - [facility], [REFERRING] - 1 Week Rocio Pulido MD [STAFF PHYSICIAN] - 2 Weeks Patient Instructions/Handouts: Diverticulitis (DC), Acute Nausea and Vomiting (DC), Diverticulitis Diet (DC) Activity/Diet/Wound Care/Special Instructions: Activity Limited until follow-up Follow-up with primary care provider upon discharge Continue to avoid tobacco use Take medications as prescribed Take antibiotics until finished and with food Continue low fiber diet Follow diverticulitis strict dietary recommendations Prescriptions sent to your pharmacy Repeat CAT scan in 2 weeks to monitor improvement and/or progression of d iverticular abscess Discharge Disposition: HOME WITH HOME HEALTH SERVICES
== END 2020-10-19 17:56 | disposition home health service (06) | DRG 853 ==
LOC: EC 12:30 → 5NMEDONC 15:59
PROVIDERS: ADMIT Internal Medicine; ATTEND Internal Medicine
PROC: 0W9H3ZX Drainage of Retroperitoneum, Percutaneous Approach, Diagnostic (ICD-10-PCS; principal; 2020-10-12)
DX: A41.53 Sepsis due to Serratia (principal); K65.1 Peritoneal abscess; K57.20 Diverticulitis of large intestine with perforation and abscess without bleeding; I10 Essential (primary) hypertension; K59.00 Constipation, unspecified; F17.210 Nicotine dependence, cigarettes, uncomplicated; Z20.822 Contact with and (suspected) exposure to COVID-19; D72.829 Elevated white blood cell count, unspecified; E87.6 Hypokalemia; K21.9 Gastro-esophageal reflux disease without esophagitis; E78.5 Hyperlipidemia, unspecified; Z88.5 Allergy status to narcotic agent; Z80.1 Family history of malignant neoplasm of trachea, bronchus and lung; Z83.3 Family history of diabetes mellitus; F41.9 Anxiety disorder, unspecified; J45.909 Unspecified asthma, uncomplicated; Z53.09 Procedure and treatment not carried out because of other contraindication; N73.9 Female pelvic inflammatory disease, unspecified
CPT/HCPCS: 36410; 36415; 74022; 74177; 75989; 76380; 76830; 76856; 76937; 80048; 80053; 80076; 81003; 82150; 82272; 83605; 83690; 83735; 84132; 84145; 85025; 85610; 85730; 86140; 87040; 87070; 87075; 87077; 87186; 87205; 87635; 88108; 88305; 96361; 96365; 96372; 96374; 96375; 99284; 99285

== ENCOUNTER → 2020-11-10 | Outpatient (CLI) | payer BC | END | disposition home or self-care (01) | CPT/HCPCS: 74178 ==